=== PATIENT | female | born 1930 | race Caucasian/White ===

== ENCOUNTER 2017-02-09 23:57 | Inpatient (IN) | payer MEDICARE, BC ==
[~2017-02-09] VITALS: Ht 157.5 cm; Wt 82.1 kg
[~2017-02-09 23:57] MED LIST: ACET325T9 PO; AMIO200T PO; AMIO200T2 PO; APIX5TAB PO; FURO-68 PO; OMEP40CA2 PO
[2017-02-10 00:22] LABS: BASO # 0.1 x10^3/uL (0.0-0.2); BASO % 1 % (0-3); EOS % 0 % (0-3); HEMATOCRIT 40.6 % (36.0-47.0); HEMOGLOBIN 13.7 g/dL (12.0-15.5); LYMPH # 1.4 x10^3/uL (1.0-4.8); LYMPH % 10 % (24-48); MEAN CORPUSCULAR HEMOGLOBIN 32 pg (25-35); MEAN CORPUSCULAR HGB CONC 34 g/dL (31-37); MEAN CORPUSCULAR VOLUME 94 fL (79-100); MONO % 10 % (0-9); NEUT % 80 % (31-73); PLATELET COUNT 253 x10^3/uL (140-400); RED CELL DISTRIBUTION WIDTH 13.4 % (11.5-14.5); WHITE BLOOD COUNT 14.5 x10^3/uL (4.0-11.0)
[2017-02-10] MEDS ORDERED: ONDANSETRON PF 4 MG/2 ML VIAL. IV ONE (00:30)
[2017-02-10] MEDS ORDERED: IV NORMAL SALINE 1000ML BAG 1,000 ML IV SCH (00:30)
[2017-02-10 00:31] LABS: CALCIUM 8.6 mg/dL (8.5-10.1); CREATININE 0.9 mg/dL (0.6-1.0); GFR 59.1; POTASSIUM 3.5 mmol/L (3.5-5.1)
[2017-02-10 00:32] LABS: INR 1.2 (0.8-1.1); PROTHROMBIN TIME PATIENT 14.8 SEC (11.7-14.0)
[2017-02-10] MEDS: fentaNYL PF VIAL 100 MCG/2 ML VIAL IV PRN ×4 (00:33→23:59)
[2017-02-10 00:37] LABS: ALBUMIN 3.1 g/dL (3.4-5.0); ALBUMIN/GLOBULIN RATIO 0.8 (1.0-1.7); TOTAL BILIRUBIN 1.3 mg/dL (0.2-1.0)
[2017-02-10 00:47] LABS: CKMB MASS < 0.5 ng/mL (0.0-3.6); CREATINE KINASE 37 U/L (26-192)
--- NOTE | 2017-02-10 00:50 | PHYS DOC ---
Past Medical History Past Medical History: Arrhythmia, GERD, Other Additional Past Medical Histor: macular degeneration; atrial fibrillation-on anticoagulation Past Surgical History: Pacemaker Additional Information: Non smoker Alcohol Use: None Drug Use: None Adult General Chief Complaint Chief Complaint: ABDOMINAL PAIN HPI HPI Patient is a 86 year old female who presents with abdominal pain. Started on Monday with vomiting. The pain awakened her tonight at 2300 PM. The pain is on her right side. No diarrhea. No known fever. She is on Eliquis (for "heart"). Review of Systems Review of Systems Constitutional: Denies fever POS chills Eyes: Denies change in visual acuity, redness, or eye pain HENT: Denies nasal congestion or sore throat Respiratory: Denies cough or shortness of breath Cardiovascular: No chest pain GI: POS abdominal pain, nausea and vomiting, DENIES bloody stools or diarrhea : Denies dysuria or hematuria Musculoskeletal: POS back pain but no joint pain Integument: Denies rash or skin lesions Neurologic: Denies headache, focal weakness or sensory changes All other systems were reviewed and found to be within normal limits, except as documented in this note. Current Medications Current Medications Current Medications Medications (Trade) Dose Ordered Sig/Adam Start Time Stop Time Status Last Admin Dose Admin Fentanyl Citrate (Fentanyl 2ml Vial) 50 mcg PRN Q1HR PRN 02/10/17 02:30 02/11/17 02:29 Info (Do NOT chart on this entry -- for MONITORING) 1 each PRN DAILY PRN 02/10/17 01:15 02/12/17 01:14 Iohexol (Omnipaque 300 Mg/ml) 60 ml 1X ONCE 02/10/17 01:30 02/10/17 01:31 DC 02/10/17 01:29 60 ML Morphine Sulfate 2 mg PRN Q2HR PRN 02/10/17 02:30 02/11/17 02:29 Ondansetron HCl (Zofran) 4 mg PRN Q8HRS PRN 02/10/17 02:30 02/11/17 02:29 Sodium Chloride 1,000 ml @ 1,000 mls/hr Q1H 02/10/17 00:30 02/10/17 01:29 DC 02/10/17 00:30 1,000 MLS/HR Allergies Allergies Allergies Coded Allergies Type Severity Reaction Last Updated Verified Sulfa (Sulfonamide Antibiotics) Allergy Intermediate 09/26/14 No Physical Exam Physical Exam Constitutional: Well developed, well nourished, in pain HENT: Normocephalic, atraumatic, bilateral external ears normal, oropharynx moist, no oral exudates, nose normal. Eyes: PERRLA, EOMI, conjunctiva normal, no discharge. Neck: Normal range of motion, no tenderness, supple, no stridor. Cardiovascular:Heart rate regular rhythm; tachycardic , no murmur Lungs & Thorax: Bilateral breath sounds clear to auscultation; no rales or wheezing Abdomen: Bowel sounds normal, soft, POSITIVE tenderness to right side; more upper than lower; positive guarding, no masses, no pulsatile masses. Skin: Warm, dry, no erythema, no rash. Back: No tenderness, no CVA tenderness. Extremities: No tenderness, no cyanosis, no clubbing, ROM intact, no edema. Neurologic: Alert and oriented X 3, normal motor function, normal sensory function, no focal deficits noted. Psychologic: Affect normal, judgement normal, mood normal. Current Patient Data Vital Signs Vital Signs Date Time Temp Pulse Resp B/P (MAP) Pulse Ox O2 Delivery O2 Flow Rate FiO2 02/10/17 02:10 18 94 Nasal Cannula 3.0 02/10/17 01:01 86 106/56 (73) 02/10/17 00:10 98.2 98.2 Lab Values Laboratory Tests Test 02/10/17 00:15 White Blood Count 14.5 x10^3/uL (4.0-11.0) H Red Blood Count 4.30 x10^6/uL (3.50-5.40) Hemoglobin 13.7 g/dL (12.0-15.5) Hematocrit 40.6 % (36.0-47.0) Mean Corpuscular Volume 94 fL (79-100) Mean Corpuscular Hemoglobin 32 pg (25-35) Mean Corpuscular Hemoglobin Concent 34 g/dL (31-37) Red Cell Distribution Width 13.4 % (11.5-14.5) Platelet Count 253 x10^3/uL (140-400) Neutrophils (%) (Auto) 80 % (31-73) H Lymphocytes (%) (Auto) 10 % (24-48) L Monocytes (%) (Auto) 10 % (0-9) H Eosinophils (%) (Auto) 0 % (0-3) Basophils (%) (Auto) 1 % (0-3) Neutrophils # (Auto) 11.6 x10^3uL (1.8-7.7) H Lymphocytes # (Auto) 1.4 x10^3/uL (1.0-4.8) Monocytes # (Auto) 1.4 x10^3/uL (0.0-1.1) H Eosinophils # (Auto) 0.0 x10^3/uL (0.0-0.7) Basophils # (Auto) 0.1 x10^3/uL (0.0-0.2) Prothrombin Time 14.8 SEC (11.7-14.0) H Prothrombin Time INR 1.2 (0.8-1.1) H PTT 30 SEC (24-38) Sodium Level 135 mmol/L (136-145) L Potassium Level 3.5 mmol/L (3.5-5.1) Chloride Level 100 mmol/L (98-107) Carbon Dioxide Level 28 mmol/L (21-32) Anion Gap 7 (6-14) Blood Urea Nitrogen 15 mg/dL (7-20) Creatinine 0.9 mg/dL (0.6-1.0) Estimated GFR (Cockcroft-Gault) 59.1 BUN/Creatinine Ratio 17 (6-20) Glucose Level 149 mg/dL (70-99) H Calcium Level 8.6 mg/dL (8.5-10.1) Total Bilirubin 1.3 mg/dL (0.2-1.0) H Aspartate Amino Transferase (AST) 16 U/L (15-37) Alanine Aminotransferase (ALT) 16 U/L (14-59) Alkaline Phosphatase 89 U/L (46-116) Creatine Kinase 37 U/L (26-192) Creatine Kinase MB (Mass) < 0.5 ng/mL (0.0-3.6) Creatine Kinase MB Relative Index % (0-4) Troponin I Quantitative < 0.017 ng/mL (0.000-0.055) Total Protein 7.0 g/dL (6.4-8.2) Albumin 3.1 g/dL (3.4-5.0) L Albumin/Globulin Ratio 0.8 (1.0-1.7) L Lipase 79 U/L (73-393) Laboratory Tests 02/10/17 00:15 Laboratory Tests 02/10/17 00:15 EKG EKG EKG interpreted by myself at 0022 am with Sinus tachycardia, Rate 101, leftward axis; nonspecific ST changes. Radiology/Procedures Radiology/Procedures CXR interpreted by myself with PM wires in place; LLL atelectasis vs scarring. Improved from CXR 2014 [facility] [address] [place] [address] IMAGING REPORT Signed PATIENT: NANCY GRIFFITH ACCOUNT: [id number] : 1930 LOCATION: ER AGE: 86 SEX: F EXAM STATUS: REG ER ORD. PHYSICIAN: ALLAN LARIOS MD REASON: WBC, vomiting Rt sided pain PROCEDURE: CT ABD PELV W/ IV CONTRST ONLY CT abdomen and pelvis with contrast: Reason for examination: Right-sided abdominal pain and vomiting. Helical images were obtained through the abdomen and pelvis with intravenous administration of 60 cc Omnipaque 300. Reconstruction was performed in sagittal and coronal planes. Exposure: One or more of the following individualized dose reduction techniques were utilized for this examination: 1. Automated exposure control 2. Adjustment of the mA and/or kV according to patient size 3. Use of iterative reconstruction technique. The lung bases show some atelectasis at the lung bases. No pleural effusions are seen. The heart size is normal. No abnormality seen at the liver, spleen, adrenal glands or pancreas. The gallbladder appears distended and there is some pericholecystic fluid and inflammatory change present. The abdominal aorta and inferior vena cava show no abnormalities. There is a small hiatal hernia. No abnormality seen at the appendix. The intestinal tract shows no abnormally dilated loops of bowel or thickened bowel vaughan. There is no evidence of diverticulosis or diverticulitis. The kidneys show no renal masses, renal calculi, hydronephrosis or evidence of obstructive uropathy. No abnormality seen at the bladder uterus or in the adnexa. There is free fluid in the pelvis. IMPRESSION: Distended gallbladder with pericholecystic fluid and inflammatory changes around the gallbladder without cholelithiasis identified. Cannot exclude acalculous cholecystitis. Small amount of free fluid in the pelvis. Linear atelectasis at the lung bases. Small hiatal hernia. Electronically signed by: Skylar Monte MD (02/10/2017 2:08 AM) [facility] DICTATED and SIGNED BY: SKYLAR MONTE MD DATE: 02/10/17 0148 CC: ALLAN LARIOS MD; LULI GAY MD ~ Course & Med Decision Making Course & Med Decision Making Evaluated patient. IV NS, IV ZOfran and IV fentanyl. Concerned about acute abdomen; kept NPO. At 0050 AM: Lab back; CT ordered (Cr normal). At 0120 AM: patient in CT. At 0215 AM: CT results back: POS cholelithiasis and cholecystitis. Zosyn IV started. Updated patient and family. Admit to Dr Kathleen and consult Surgery; kept NPO. Lipase normal. She is anticoagulated. Pain had improved upon discharge to floor. My differential for abdominal pain includes but is not limited to appendicitis; cholelithiasis or cholecystitis; renal stones; ureterolithiasis; pancreatitis; urinary tract infection; bowel obstruction; irritable bowel. I have spoken with the patient and/or caregivers. I have explained the patient' s condition, diagnosis and treatment plan based on the information available to me at this time. I have answered the patient's and/or caregiver's questions and addressed any concerns. The patient and/or caregivers have as good an understanding of the patient's diagnosis, condition and treatment plan as can be expected at this point. The patient has been stabilized within the capability of the emergency department. The patient will be transported for further care and management or will be moved to an observation or inpatient service. I have communicated with the staff or medical practitioner taking over this patient's care. I have assessed this patient clinically and believe that their condition requires admission to the hospital. After consulting the admitting physician about this case, they have asked that I admit this patient to their service as an inpatient based on the clinical presentation and my impression. I spent approximately 30 minutes working and engaged directly in the patient care providing critical care evaluation this includes but not limited to time spent engaged in work directly related to the individual patients care. I spent time at the bedside, reviewing test results, discussing the case with staff, documenting the medical record and time spent with EMS discussing specific treatment issues when the patient presented and during his evaluation. This includes any discussion and updates with family members and/or patient. Dragon Disclaimer Dragon Disclaimer This electronic medical record was generated, in whole or in part, using a voice recognition dictation system. Departure Departure Impression: Primary Impression: Acute cholecystitis due to biliary calculus Additional Impressions: Abdominal pain Nausea & vomiting Current use of anticoagulant therapy Disposition: ADMITTED INPATIENT Admitting Physician: April Kathleen Condition: STABLE Referrals: KATARZYNA OCHOA GRINDER OPERATOR (PCP) Problem Qualifiers Additional Impressions: Abdominal pain Abdominal location: right upper quadrant Qualified Codes: R10.11 - Right upper quadrant pain Nausea & vomiting Vomiting type: unspecified Vomiting Intractability: non-intractable Qualified Codes: R11.2 - Nausea with vomiting, unspecified ALLAN LARIOS MD Feb 10, 2017 00:50
[2017-02-10] MEDS ORDERED: CONTRAST GIVEN MC PRN (01:15)
[2017-02-10] MEDS ORDERED: IOHEXOL 300 MG/ML 100ML VIAL. IV ONE (01:30)
--- NOTE | 2017-02-10 02:12 | RAD ---
CT abdomen and pelvis with contrast: Reason for examination: Right-sided abdominal pain and vomiting. Helical images were obtained through the abdomen and pelvis with intravenous administration of 60 cc Omnipaque 300. Reconstruction was performed in sagittal and coronal planes. Exposure: One or more of the following individualized dose reduction techniques were utilized for this examination: 1. Automated exposure control 2. Adjustment of the mA and/or kV according to patient size 3. Use of iterative reconstruction technique. The lung bases show some atelectasis at the lung bases. No pleural effusions are seen. The heart size is normal. No abnormality seen at the liver, spleen, adrenal glands or pancreas. The gallbladder appears distended and there is some pericholecystic fluid and inflammatory change present. The abdominal aorta and inferior vena cava show no abnormalities. There is a small hiatal hernia. No abnormality seen at the appendix. The intestinal tract shows no abnormally dilated loops of bowel or thickened bowel vaughan. There is no evidence of diverticulosis or diverticulitis. The kidneys show no renal masses, renal calculi, hydronephrosis or evidence of obstructive uropathy. No abnormality seen at the bladder uterus or in the adnexa. There is free fluid in the pelvis. IMPRESSION: Distended gallbladder with pericholecystic fluid and inflammatory changes around the gallbladder without cholelithiasis identified. Cannot exclude acalculous cholecystitis. Small amount of free fluid in the pelvis. Linear atelectasis at the lung bases. Small hiatal hernia. Electronically signed by: Skylar Delaney MD (02/10/2017 2:08 AM) [facility]
[2017-02-10] MEDS ORDERED: ONDANSETRON PF 4 MG/2 ML VIAL. IV PRN (02:30)
[2017-02-10] MEDS ORDERED: MORPHINE SULFATE 2 MG/ML DISP.SYRIN. IV PRN (02:30)
[2017-02-10] MEDS ORDERED: POTASSIUM CL 20MEQ D5-0.45NACL 1,000 ML IV ONE (03:00)
[2017-02-10] MEDS ORDERED: PIPERACILLIN/TAZO IV Push 3.375 GM VIAL. IVP ONE (03:00)
[2017-02-10 03:20] VITALS: BP 93/56
[2017-02-10] MEDS ORDERED: METO25TA4 (04:40)
[2017-02-10] MEDS ORDERED: PIPERACILLIN/TAZOBACTAM 3.375 GM in IV DEXTROSE 5% 50 ML IV SCH (06:00)
[2017-02-10] MEDS: PIPERACILLIN/TAZO IV Push 2.25 GM VIAL. IVP SCH ×4 (06:08→23:59)
[2017-02-10 07:00] VITALS: BP 111/49
--- NOTE | 2017-02-10 07:59 | RAD ---
EXAM: Chest one view. HISTORY: Upper abdominal pain, hypoxia. COMPARISON: 09/23/2014. FINDINGS: A frontal view of the chest is obtained. A left-sided pacemaker has its leads in the right atrium and right ventricle. Linear opacities in the left greater than right bases indicate atelectasis or scarring. There is no pneumothorax or pleural effusion. The heart is not enlarged. There are atherosclerotic calcifications of the aorta. IMPRESSION: 1. Basilar atelectasis or scarring.
--- NOTE | 2017-02-10 09:11 | EKG ---
[facility] [address] [place] [address] Test Date: 2017-02-10 Test Time: 00:22:14 Pat Name: NANCY GRIFFITH Department: Room: 402 1 Gender: F [employer]: : 1930 Requested By: ALLAN LARIOS Order Number: [id number] Reading MD: Jos Turner Measurements Intervals [place] Rate: 101 P: 26 MN: 156 QRS: -21 QRSD: 74 T: 54 QT: 318 QTc: 418 Interpretive Statements SINUS TACHYCARDIA LEFTWARD AXIS QRS(T) CONTOUR ABNORMALITY CONSIDER ANTEROLATERAL MYOCARDIAL DAMAGE POSSIBLY ABNORMAL ECG Electronically Signed On 02-20-2017 14:09:31 [employer] LAMINATOR by Jos Turner
[2017-02-10 11:00] VITALS: BP 103/48
--- NOTE | 2017-02-10 11:33 | HP ---
ADMIT DATE: 02/10/2017 CHIEF COMPLAINT: Abdominal pain and nausea. HISTORY OF PRESENT ILLNESS: The patient is a pleasant 86-year-old female who presented to the ER with abdominal pain and nausea. This started 3 days ago, rated at 10/10. She tried increasing her home meds, but that did not work. Imaging studies in the ER is showing cholecystitis. I have discussed the case with ER physician. We are admitting the patient and consulting General Surgery and GI. PAST MEDICAL HISTORY: GERD, arrhythmias, macular degeneration, AFib, chronic anticoagulation, pacemaker. ALLERGIES: SULFA. FAMILY HISTORY: Coronary artery disease. SOCIAL HISTORY: She does not drink, smoke or take drugs. MEDICATIONS: Reviewed. REVIEW OF SYSTEMS: GENERAL: No history of weight change, weakness or fevers. SKIN: No bruising, hair changes or rashes. EYES: No blurred, double or loss of vision. NOSE AND THROAT: No history of nosebleeds, hoarseness or sore throat. HEART: No history of palpitations, chest pain or shortness of breath on exertion. LUNGS: Denies cough, hemoptysis, wheezing or shortness of breath. GASTROINTESTINAL: Complains of abdominal pain. GENITOURINARY: No history of frequency, urgency, hesitancy or nocturia. NEUROLOGIC: Denies history of numbness, tingling, tremor or weakness. PSYCHIATRIC: No history of panic, anxiety or depression. ENDOCRINE: No history of heat or cold intolerance, polyuria or polydipsia. EXTREMITIES: Denies muscle weakness, joint pain, pain on walking or stiffness. PHYSICAL EXAMINATION: VITAL SIGNS: Temperature afebrile, pulse 80, respirations 16, blood pressure 111/49, oxygen saturation is 90% on 2 liters. GENERAL: She is alert, cooperative, complaining of pain. HEART: Normal S1, S2. LUNGS: Clear. ABDOMEN: Soft. Decreased bowel sounds. Very tender, somewhat rigid, but tap negative. ENDOCRINE: No thyromegaly. LYMPHATICS: No cervical nodes. HEMATOPOIETIC: No bruising. LABORATORY DATA: White count 14, hemoglobin 13.7, platelets 253. Electrolytes normal other than sodium of 135 and glucose of 149. Bilirubin 1.3. INR 1.2. CT is showing cholecystitis. ASSESSMENT AND PLAN: Cholecystitis. The patient will be admitted. We will start IV antibiotics. Consult GI, consult General Surgery, consult Infectious Disease. P.r.n. narcotics, IV fluids, n.p.o. CURT WREN DO DR: NAHED/ata JOB#: [id number] / [id number]
--- NOTE | 2017-02-10 14:35 | PDOC2 ---
CONSULT Date of Consult Date of Consult DATE: 02/10/17 TIME: 14:33 History of Present Illness Reason for Visit: The patient is an 86 year old female who has noticed vomiting and RUQ pain for the last few days. The pain persisted prompting her to report to the ER. The pain radiates around the side to the back. Past Medical History Cardiovascular: No pertinent hx Pulmonary: No pertinent hx GI: GERD Heme/Onc: No pertinent hx Hepatobiliary: No pertinent hx Psych: No pertinent hx Rheumatologic: No pertinent hx Infectious disease: No pertinent hx Renal/: No pertinent hx Endocrine: No pertinent hx Past Surgical History Past Surgical History: Pacemaker Family History Family History: Heart Disease Social History ALCOHOL: none Drugs: None Lives: with Family Domestic Violence: Neg Current Problem List Problem List Problems Medical Problems: (1) Abdominal pain Status: Acute (2) Acute cholecystitis due to biliary calculus Status: Acute (3) Current use of anticoagulant therapy Status: Acute (4) Nausea & vomiting Status: Acute Current Medications Current Medications Current Medications Fentanyl Citrate (Fentanyl 2ml Vial) 50 mcg PRN Q15MIN PRN IV PAIN GREATER THAN 3/10 Last administered on 02/10/17 09:47; Start 02/10/17 at 00:15; Stop 02/10/17 at 12:53; Status DC Sodium Chloride 1,000 ml @ 1,000 mls/hr Q1H IV Last administered on 00:30; Start 02/10/17 at 00:30; Stop 02/10/17 at 01:29; Status DC Ondansetron HCl (Zofran) 4 mg 1X ONCE IV Last administered on 02/10/17 00:32 ; Start 02/10/17 at 00:30; Stop 02/10/17 at 00:31; Status DC Iohexol (Omnipaque 300 Mg/ml) 60 ml 1X ONCE IV Last administered on 01:29; Start 02/10/17 at 01:30; Stop 02/10/17 at 01:31; Status DC Info (Do NOT chart on this entry -- for MONITORING) 1 each PRN DAILY PRN MC SEE COMMENTS; Start 02/10/17 at 01:15; Stop 02/12/17 at 01:14 Piperacillin Sod/ Tazobactam Sod 3.375 gm/Dextrose 50 ml @ 100 mls/hr Q6HRS IV ; Start 02/10/17 at 06:00; Status UNV Ondansetron HCl (Zofran) 4 mg PRN Q8HRS PRN IV NAUSEA/VOMITING; Start at 02:30; Stop 02/11/17 at 02:29 Morphine Sulfate 2 mg PRN Q2HR PRN IV SEVERE PAIN; Start 02/10/17 at 02:30; Stop 02/11/17 at 02:29 Fentanyl Citrate (Fentanyl 2ml Vial) 50 mcg PRN Q1HR PRN IV SEVERE PAIN; Start 02/10/17 at 02:30; Stop 02/11/17 at 02:29 Piperacillin Sod/ Tazobactam Sod (Zosyn) 3.375 gm 1X ONCE IVP Last administered on 02/10/17 02:41; Start 02/10/17 at 03:00; Stop 02/10/17 at 03 :01; Status DC Potassium Chloride/Dextrose/ Sod Cl 1,000 ml @ 125 mls/hr 1X ONCE IV Last administered on 02/10/17 03:02; Start 02/10/17 at 03:00; Stop 02/10/17 at 10 :59; Status DC Piperacillin Sod/ Tazobactam Sod (Zosyn) 2.25 gm Q6HRS IVP Last administered on 02/10/17 12:41; Start 02/10/17 at 06:00 Lactobacillus Rhamnosus (Culturelle) 1 cap BID PO ; Start 02/10/17 at 21:00 Active Scripts Active Amiodarone Hcl 200 Mg Tablet 1 Tab PO DAILY Tylenol (Acetaminophen) 325 Mg Tablet 650 Mg PO PRN Q6HRS PRN Eliquis (Apixaban) 5 Mg Tablet 5 Mg PO BID Reported Metoprolol Tartrate 25 Mg Tablet Lasix (Furosemide) 40 Mg Tablet 1 Tab PO DAILY Prilosec (Omeprazole) 40 Mg Capsule. 1 Cap PO DAILY Allergies Allergies: Coded Allergies: Sulfa (Sulfonamide Antibiotics) (Unverified Allergy, Intermediate, 09/26/14 ) ROS General: No: Chills, Night Sweats, Fatigue, Malaise, Appetite, Other PSYCHOLOGICAL ROS: No: Anxiety, Behavioral Disorder, Concentration difficultie , Decreased libido, Depression, Disorientation, Hallucinations, Hostility, Irritablity, Memory difficulties, Mood Swings, Obsessive thoughts, Physical abuse, Sexual abuse, Sleep disturbances, Suicidal ideation, Other Eyes: No Blurry vision, No Decreased vision, No Double vision, No Dry eyes, No Excessive tearing, No Eye Pain, No Itchy Eyes, No Loss of vision, No Photophobia , No Scotomata, No Uses contacts, No Uses glasses, No Other HEENT: No: Heacaches, Visual Changes, Hearing change, Nasal congestion, Nasal discharge, Oral lesions, Sinus pain, Sore Throat, Epistaxis, Sneezing, Snoring, Tinnitus, Vertigo, Vocal changes, Other Hematological and Lymphatic: No: Bleeding Problems, Blood Clots, Blood Transfusions, Brusing, Night Sweats, Pallor, Swollen Lymph Nodes, Other ENDOCRINE: No: Breast Changes, Galactorrhea, Hair Pattern Changes, Hot Flashes , Malaise/lethargy, Mood Swings, Palpitations, Polydipsia/polyuria, Skin Changes , Temperature Intolerance, Unexpected Weight Changes, Other Respiratory: No: Cough, Hemoptysis, Orthopnea, Pleuritic Pain, Shortness of breath, SOB with excertion, Sputum Changes, Stridor, Tachypnea, Wheezing, Other Cardiovascular: No Chest Pain, No Palpitations, No Orthopnea, No Paroxysmal Noc. Dyspnea, No Edema, No Lt Headedness, No Other Gastrointestinal: Yes Vomiting, Yes Abdominal Pain Genitourinary: No Dysuria, No Frequency, No Incontinence, No Hematuria, No Retention, No Discharge, No Urgency, No Pain, No Flank Pain, No Other, No , No , No , No , No , No , No Musculoskeletal: No Gait Disturbance, No Joint Pain, No Joint Stiffness, No Joint Swelling, No Muscle Pain, No Muscular Weakness, No Pain In:, No Swelling In:, No Other Neurological: No Behavorial Changes, No Bowel/Bladder ControlChng, No Confusion , No Dizziness, No Gait Disturbance, No Headaches, No Impaired Coord/balance, No Memory Loss, No Numbness/Tingling, No Seizures, No Speech Problems, No Tremors, No Visual Changes, No Weakness, No Other Physical Exam General: Alert, Oriented X3, Cooperative HEENT: Atraumatic Lungs: Clear to auscultation Heart: Regular rate Abdomen: Soft (tender RUQ with palpation) Extremities: No clubbing, No cyanosis Skin: No rashes Neuro: Normal speech Psych/Mental Status: Mental status NL MUSCULOSKELETAL: No deformity, No swelling Vitals VITALS Vital Signs Date Time Temp Pulse Resp B/P (MAP) Pulse Ox O2 Delivery O2 Flow Rate FiO2 02/10/17 11:00 100.9 101 18 103/48 (66) 89 Room Air 100.9 02/10/17 03:30 2.0 Labs Labs Laboratory Tests Test 02/10/17 00:15 White Blood Count 14.5 x10^3/uL (4.0-11.0) Red Blood Count 4.30 x10^6/uL (3.50-5.40) Hemoglobin 13.7 g/dL (12.0-15.5) Hematocrit 40.6 % (36.0-47.0) Mean Corpuscular Volume 94 fL (79-100) Mean Corpuscular Hemoglobin 32 pg (25-35) Mean Corpuscular Hemoglobin Concent 34 g/dL (31-37) Red Cell Distribution Width 13.4 % (11.5-14.5) Platelet Count 253 x10^3/uL (140-400) Neutrophils (%) (Auto) 80 % (31-73) Lymphocytes (%) (Auto) 10 % (24-48) Monocytes (%) (Auto) 10 % (0-9) Eosinophils (%) (Auto) 0 % (0-3) Basophils (%) (Auto) 1 % (0-3) Neutrophils # (Auto) 11.6 x10^3uL (1.8-7.7) Lymphocytes # (Auto) 1.4 x10^3/uL (1.0-4.8) Monocytes # (Auto) 1.4 x10^3/uL (0.0-1.1) Eosinophils # (Auto) 0.0 x10^3/uL (0.0-0.7) Basophils # (Auto) 0.1 x10^3/uL (0.0-0.2) Prothrombin Time 14.8 SEC (11.7-14.0) Prothromb Time International Ratio 1.2 (0.8-1.1) Activated Partial Thromboplast Time 30 SEC (24-38) Sodium Level 135 mmol/L (136-145) Potassium Level 3.5 mmol/L (3.5-5.1) Chloride Level 100 mmol/L (98-107) Carbon Dioxide Level 28 mmol/L (21-32) Anion Gap 7 (6-14) Blood Urea Nitrogen 15 mg/dL (7-20) Creatinine 0.9 mg/dL (0.6-1.0) Estimated GFR (Cockcroft-Gault) 59.1 BUN/Creatinine Ratio 17 (6-20) Glucose Level 149 mg/dL (70-99) Calcium Level 8.6 mg/dL (8.5-10.1) Total Bilirubin 1.3 mg/dL (0.2-1.0) Aspartate Amino Transf (AST/SGOT) 16 U/L (15-37) Alanine Aminotransferase (ALT/SGPT) 16 U/L (14-59) Alkaline Phosphatase 89 U/L (46-116) Creatine Kinase 37 U/L (26-192) Creatine Kinase MB (Mass) < 0.5 ng/mL (0.0-3.6) Creatine Kinase MB Relative Index % (0-4) Troponin I Quantitative < 0.017 ng/mL (0.000-0.055) Total Protein 7.0 g/dL (6.4-8.2) Albumin 3.1 g/dL (3.4-5.0) Albumin/Globulin Ratio 0.8 (1.0-1.7) Lipase 79 U/L (73-393) Laboratory Tests Test 02/10/17 00:15 White Blood Count 14.5 x10^3/uL (4.0-11.0) Red Blood Count 4.30 x10^6/uL (3.50-5.40) Hemoglobin 13.7 g/dL (12.0-15.5) Hematocrit 40.6 % (36.0-47.0) Mean Corpuscular Volume 94 fL (79-100) Mean Corpuscular Hemoglobin 32 pg (25-35) Mean Corpuscular Hemoglobin Concent 34 g/dL (31-37) Red Cell Distribution Width 13.4 % (11.5-14.5) Platelet Count 253 x10^3/uL (140-400) Neutrophils (%) (Auto) 80 % (31-73) Lymphocytes (%) (Auto) 10 % (24-48) Monocytes (%) (Auto) 10 % (0-9) Eosinophils (%) (Auto) 0 % (0-3) Basophils (%) (Auto) 1 % (0-3) Neutrophils # (Auto) 11.6 x10^3uL (1.8-7.7) Lymphocytes # (Auto) 1.4 x10^3/uL (1.0-4.8) Monocytes # (Auto) 1.4 x10^3/uL (0.0-1.1) Eosinophils # (Auto) 0.0 x10^3/uL (0.0-0.7) Basophils # (Auto) 0.1 x10^3/uL (0.0-0.2) Prothrombin Time 14.8 SEC (11.7-14.0) Prothromb Time International Ratio 1.2 (0.8-1.1) Activated Partial Thromboplast Time 30 SEC (24-38) Sodium Level 135 mmol/L (136-145) Potassium Level 3.5 mmol/L (3.5-5.1) Chloride Level 100 mmol/L (98-107) Carbon Dioxide Level 28 mmol/L (21-32) Anion Gap 7 (6-14) Blood Urea Nitrogen 15 mg/dL (7-20) Creatinine 0.9 mg/dL (0.6-1.0) Estimated GFR (Cockcroft-Gault) 59.1 BUN/Creatinine Ratio 17 (6-20) Glucose Level 149 mg/dL (70-99) Calcium Level 8.6 mg/dL (8.5-10.1) Total Bilirubin 1.3 mg/dL (0.2-1.0) Aspartate Amino Transf (AST/SGOT) 16 U/L (15-37) Alanine Aminotransferase (ALT/SGPT) 16 U/L (14-59) Alkaline Phosphatase 89 U/L (46-116) Creatine Kinase 37 U/L (26-192) Creatine Kinase MB (Mass) < 0.5 ng/mL (0.0-3.6) Creatine Kinase MB Relative Index % (0-4) Troponin I Quantitative < 0.017 ng/mL (0.000-0.055) Total Protein 7.0 g/dL (6.4-8.2) Albumin 3.1 g/dL (3.4-5.0) Albumin/Globulin Ratio 0.8 (1.0-1.7) Lipase 79 U/L (73-393) Images Images CT abdomen: IMPRESSION: Distended gallbladder with pericholecystic fluid and inflammatory changes around the gallbladder without cholelithiasis identified. Cannot exclude acalculous cholecystitis. Small amount of free fluid in the pelvis. Linear atelectasis at the lung bases. Small hiatal hernia. Assessment/Plan Assessment/Plan Pt on Eliquis prior to admission; recommend holding 48 hours prior to surgery; continue IV abx, likely lap russell Monday (discussed with Dr Berry who will be covering) FRANK CARCAMO MD Feb 10, 2017 14:35
[2017-02-10 15:00] VITALS: BP 114/50
[2017-02-10 17:12] LABS: BILIRUBIN,URINE SMALL (NEG); GLUCOSE,URINE NEGATIVE (NEG); NITRITE,URINE NEGATIVE (NEG); PROTEIN,URINE 30 mg/dL (NEG-TRACE)
[2017-02-10 17:21] LABS: BACTERIA,URINE FEW /HPF (0-FEW); RBC,URINE 0 /HPF (0-2); SQUAMOUS EPITHELIAL CELL,UR OCC /LPF
[2017-02-10 19:00] VITALS: BP 103/58
[2017-02-10] MEDS: LACTOBACILLUS RHAMNOSUS GG 1 CAPSULE. PO SCH (20:57)
[2017-02-10 23:00] VITALS: BP 116/77
[2017-02-11] VITALS (10 sets, daily range): BP systolic 89–112; BP diastolic 41–65
[2017-02-11] MEDS: PIPERACILLIN/TAZO IV Push 2.25 GM VIAL. IVP SCH ×3 (06:11→17:52)
[2017-02-11] MEDS: fentaNYL PF VIAL 100 MCG/2 ML VIAL IV PRN (06:24)
[2017-02-11] MEDS: LACTOBACILLUS RHAMNOSUS GG 1 CAPSULE. PO SCH ×2 (08:41→21:31)
--- NOTE | 2017-02-11 10:17 | PDOC2 ---
GI CONSULT Reason For Consult: Cholecystitis HPI: HPI: 86 y/o female with onset of upper abdominal pain last Monday; presented to ER on Monday. Imaging c/w acute cholecystitis. Cholecystectomy planned when off Eliquis for 2 days. Continues to be quite uncomfortable. No prior known GB issues. No definite stones on CT. H/o "GERD" on daily PPI. No PUD, liver, or pancreatic history. Non-smoker. Occasional wine. Occasional ASA use. No diarrhea, constipation, overt bleeding or melena. Wt/appetite OK. Some N and V with above. No prior endoscopy. PMH: PMH: Afib, macular degeneration. S/p PPMI. Social History: Smoke: No ALCOHOL: occassional Drugs: None ROS: GEN: Denies fevers, chills, sweats HEENT: Denies sore throat CV: Denies chest pain RESP: Denies shortness of air, cough GI: Per HPI : Denies hematuria, dysuria ENDO: Denies weight changes NEURO: Denies confusion, dizziness MSK: Denies weakness, joint pain/swelling SKIN: Denies jaundice, pruritus Vitals: Vitals: Vital Signs Date Time Temp Pulse Resp B/P (MAP) Pulse Ox O2 Delivery O2 Flow Rate FiO2 02/11/17 07:00 98.6 82 18 92/41 (58) 94 Room Air 98.6 02/11/17 06:55 2.0 Labs: Labs: Laboratory Tests Test 02/10/17 17:00 Urine Color Jenelle Urine Clarity Cloudy Urine pH 6.0 Urine Specific [place] 1.025 Urine Protein 30 mg/dL (NEG-TRACE) Urine Glucose (UA) Negative mg/dL (NEG) Urine Ketones (Stick) Negative mg/dL (NEG) Urine Blood Negative (NEG) Urine Nitrite Negative (NEG) Urine Bilirubin Small (NEG) Urine Urobilinogen Dipstick 2.0 mg/dL (0.2 mg/dL) Urine Leukocyte Esterase Moderate (NEG) Urine RBC 0 /HPF (0-2) Urine WBC 5-10 /HPF (0-4) Urine Squamous Epithelial Cells Occ /LPF Urine Amorphous Sediment Present /HPF Urine Bacteria Few /HPF (0-FEW) Urine Mucus Slight /LPF Allergies: Coded Allergies: Sulfa (Sulfonamide Antibiotics) (Unverified Allergy, Intermediate, 09/26/14 ) Medications: Current Medications Medications (Trade) Dose Ordered Sig/Adam Route PRN Reason Start Time Stop Time Status Last Admin Dose Admin Lactobacillus Rhamnosus (Culturelle) 1 cap BID PO 02/10/17 21:00 02/11/17 08:41 Fentanyl Citrate (Fentanyl 2ml Vial) 50 mcg PRN Q2HR PRN IV SEVERE PAIN 02/11/17 06:30 02/11/17 06:24 PE: GEN: NAD HEENT: Atraumatic, PERRLA LUNGS: CTAB HEART: IRR, no murmurs ABD: Few bowel sounds, S/ND, tender upper abdomen, mostly in RUQ: no masses EXTREMITY: No edema SKIN: No rashes, no jaundice NEURO/PSYCH: A & O 3 A/P: A/P: IMP:Acute cholecystitis; acalculous? GERD REC: Agree with plans for russell. Would maintain on PPI or other anti-secretory IV to forestall "acid rebound". --other pending. Thanks. SHIREEN CARO MD Feb 11, 2017 10:17
[2017-02-11] MEDS: PANTOPRAZOLE 40 MG TABLET.DR. PO SCH (11:30)
--- NOTE | 2017-02-11 11:42 | PDOC ---
SURGICAL PROGRESS NOTE Subjective Pt reports persistent pain RUQ, no n/v, hungry Vital Signs Vital Signs Date Time Temp Pulse Resp B/P (MAP) Pulse Ox O2 Delivery O2 Flow Rate FiO2 02/11/17 11:06 98.1 76 16 112/49 (70) 94 Nasal Cannula 2.0 98.1 I&O Intake and Output 02/11/17 07:00 Intake Total 490 ml Output Total 700 ml Balance -210 ml Intake Oral 490 ml Output Urine Total 700 ml Stool Total 0 ml # Voids 3 General: Alert, Oriented X3, Cooperative, mild distress Abdomen: Soft, Other (TTP RUQ) Labs Laboratory Tests Test 02/10/17 00:15 02/10/17 17:00 White Blood Count 14.5 x10^3/uL (4.0-11.0) Red Blood Count 4.30 x10^6/uL (3.50-5.40) Hemoglobin 13.7 g/dL (12.0-15.5) Hematocrit 40.6 % (36.0-47.0) Mean Corpuscular Volume 94 fL (79-100) Mean Corpuscular Hemoglobin 32 pg (25-35) Mean Corpuscular Hemoglobin Concent 34 g/dL (31-37) Red Cell Distribution Width 13.4 % (11.5-14.5) Platelet Count 253 x10^3/uL (140-400) Neutrophils (%) (Auto) 80 % (31-73) Lymphocytes (%) (Auto) 10 % (24-48) Monocytes (%) (Auto) 10 % (0-9) Eosinophils (%) (Auto) 0 % (0-3) Basophils (%) (Auto) 1 % (0-3) Neutrophils # (Auto) 11.6 x10^3uL (1.8-7.7) Lymphocytes # (Auto) 1.4 x10^3/uL (1.0-4.8) Monocytes # (Auto) 1.4 x10^3/uL (0.0-1.1) Eosinophils # (Auto) 0.0 x10^3/uL (0.0-0.7) Basophils # (Auto) 0.1 x10^3/uL (0.0-0.2) Prothrombin Time 14.8 SEC (11.7-14.0) Prothromb Time International Ratio 1.2 (0.8-1.1) Activated Partial Thromboplast Time 30 SEC (24-38) Sodium Level 135 mmol/L (136-145) Potassium Level 3.5 mmol/L (3.5-5.1) Chloride Level 100 mmol/L (98-107) Carbon Dioxide Level 28 mmol/L (21-32) Anion Gap 7 (6-14) Blood Urea Nitrogen 15 mg/dL (7-20) Creatinine 0.9 mg/dL (0.6-1.0) Estimated GFR (Cockcroft-Gault) 59.1 BUN/Creatinine Ratio 17 (6-20) Glucose Level 149 mg/dL (70-99) Calcium Level 8.6 mg/dL (8.5-10.1) Total Bilirubin 1.3 mg/dL (0.2-1.0) Aspartate Amino Transf (AST/SGOT) 16 U/L (15-37) Alanine Aminotransferase (ALT/SGPT) 16 U/L (14-59) Alkaline Phosphatase 89 U/L (46-116) Creatine Kinase 37 U/L (26-192) Creatine Kinase MB (Mass) < 0.5 ng/mL (0.0-3.6) Creatine Kinase MB Relative Index % (0-4) Troponin I Quantitative < 0.017 ng/mL (0.000-0.055) Total Protein 7.0 g/dL (6.4-8.2) Albumin 3.1 g/dL (3.4-5.0) Albumin/Globulin Ratio 0.8 (1.0-1.7) Lipase 79 U/L (73-393) Urine Color Jenelle Urine Clarity Cloudy Urine pH 6.0 Urine Specific [place] 1.025 Urine Protein 30 mg/dL (NEG-TRACE) Urine Glucose (UA) Negative mg/dL (NEG) Urine Ketones (Stick) Negative mg/dL (NEG) Urine Blood Negative (NEG) Urine Nitrite Negative (NEG) Urine Bilirubin Small (NEG) Urine Urobilinogen Dipstick 2.0 mg/dL (0.2 mg/dL) Urine Leukocyte Esterase Moderate (NEG) Urine RBC 0 /HPF (0-2) Urine WBC 5-10 /HPF (0-4) Urine Squamous Epithelial Cells Occ /LPF Urine Amorphous Sediment Present /HPF Urine Bacteria Few /HPF (0-FEW) Urine Mucus Slight /LPF Laboratory Tests Test 02/10/17 17:00 Urine Color Jenelle Urine Clarity Cloudy Urine pH 6.0 Urine Specific [place] 1.025 Urine Protein 30 mg/dL (NEG-TRACE) Urine Glucose (UA) Negative mg/dL (NEG) Urine Ketones (Stick) Negative mg/dL (NEG) Urine Blood Negative (NEG) Urine Nitrite Negative (NEG) Urine Bilirubin Small (NEG) Urine Urobilinogen Dipstick 2.0 mg/dL (0.2 mg/dL) Urine Leukocyte Esterase Moderate (NEG) Urine RBC 0 /HPF (0-2) Urine WBC 5-10 /HPF (0-4) Urine Squamous Epithelial Cells Occ /LPF Urine Amorphous Sediment Present /HPF Urine Bacteria Few /HPF (0-FEW) Urine Mucus Slight /LPF Problem List Problems Medical Problems: (1) Abdominal pain Status: Acute (2) Acute cholecystitis due to biliary calculus Status: Acute (3) Current use of anticoagulant therapy Status: Acute (4) Nausea & vomiting Status: Acute Assessment/Plan cholecystitis plan lap russell with grams in AM with Dr. Berry R/B/A d/w pt and pt's daughter Problems: ROSALIA BARAKAT MD Feb 11, 2017 11:42
[2017-02-11] MEDS ORDERED: ACETAMINOPHEN 325 MG TABLET. PO PRN (11:45)
[2017-02-11] MEDS: IV NORMAL SALINE 1000ML BAG 1,000 ML IV SCH (11:45)
[2017-02-11] MEDS: METOPROLOL TART IMMED RELEASE 25 MG TABLET. PO SCH (12:00)
[2017-02-11] MEDS: FAMOTIDINE 20 MG/2 ML VIAL IVP SCH ×2 (12:29→21:31)
--- NOTE | 2017-02-11 12:35 | PDOC ---
PROGRESS NOTES Chief Complaint Chief Complaint Acute Cholecystitis, ABD Pain History of Present Illness History of Present Illness Pt Lying down, AAOx3, NAD Awaiting Surgery Lap Cholecystecomy possible Monday Hold Eliquis 48 hr prior to Surgery Vitals Vitals Vital Signs Date Time Temp Pulse Resp B/P (MAP) Pulse Ox O2 Delivery O2 Flow Rate FiO2 02/11/17 11:06 98.1 76 16 112/49 (70) 94 Nasal Cannula 2.0 98.1 Physical Exam General: Alert, Oriented X3, Cooperative, No acute distress Heart: Regular rate, Normal S1, No murmurs Lungs: Clear Abdomen: Soft, Other (TTP RUQ) Extremities: No clubbing, No cyanosis Skin: No rashes Labs LABS Laboratory Tests Test 02/10/17 17:00 Urine Color Jenelle Urine Clarity Cloudy Urine pH 6.0 Urine Specific [place] 1.025 Urine Protein 30 mg/dL (NEG-TRACE) Urine Glucose (UA) Negative mg/dL (NEG) Urine Ketones (Stick) Negative mg/dL (NEG) Urine Blood Negative (NEG) Urine Nitrite Negative (NEG) Urine Bilirubin Small (NEG) Urine Urobilinogen Dipstick 2.0 mg/dL (0.2 mg/dL) Urine Leukocyte Esterase Moderate (NEG) Urine RBC 0 /HPF (0-2) Urine WBC 5-10 /HPF (0-4) Urine Squamous Epithelial Cells Occ /LPF Urine Amorphous Sediment Present /HPF Urine Bacteria Few /HPF (0-FEW) Urine Mucus Slight /LPF Review of Systems Review of Systems General: No Fatigue, Fever, Chills CV: No Chest Pain, Palpitations Assessment and Plan Assessmemt and Plan Assessment: Abdominal pain Acute cholecystitis due to biliary calculus Current use of anticoagulant therapy Nausea/vomiting Plan: Awaiting Surgery- Lap Amita target Monday- Dr. Berry Continue IVF Continue Antibiotics Continue Pain Meds Continue Home Meds Continue PT/OT Recheck Labs Problems: Comment Review of Relevant I have reviewed the following items elise (where applicable) has been applied. Labs Laboratory Tests Test 02/10/17 00:15 02/10/17 17:00 White Blood Count 14.5 x10^3/uL (4.0-11.0) Red Blood Count 4.30 x10^6/uL (3.50-5.40) Hemoglobin 13.7 g/dL (12.0-15.5) Hematocrit 40.6 % (36.0-47.0) Mean Corpuscular Volume 94 fL (79-100) Mean Corpuscular Hemoglobin 32 pg (25-35) Mean Corpuscular Hemoglobin Concent 34 g/dL (31-37) Red Cell Distribution Width 13.4 % (11.5-14.5) Platelet Count 253 x10^3/uL (140-400) Neutrophils (%) (Auto) 80 % (31-73) Lymphocytes (%) (Auto) 10 % (24-48) Monocytes (%) (Auto) 10 % (0-9) Eosinophils (%) (Auto) 0 % (0-3) Basophils (%) (Auto) 1 % (0-3) Neutrophils # (Auto) 11.6 x10^3uL (1.8-7.7) Lymphocytes # (Auto) 1.4 x10^3/uL (1.0-4.8) Monocytes # (Auto) 1.4 x10^3/uL (0.0-1.1) Eosinophils # (Auto) 0.0 x10^3/uL (0.0-0.7) Basophils # (Auto) 0.1 x10^3/uL (0.0-0.2) Prothrombin Time 14.8 SEC (11.7-14.0) Prothromb Time International Ratio 1.2 (0.8-1.1) Activated Partial Thromboplast Time 30 SEC (24-38) Sodium Level 135 mmol/L (136-145) Potassium Level 3.5 mmol/L (3.5-5.1) Chloride Level 100 mmol/L (98-107) Carbon Dioxide Level 28 mmol/L (21-32) Anion Gap 7 (6-14) Blood Urea Nitrogen 15 mg/dL (7-20) Creatinine 0.9 mg/dL (0.6-1.0) Estimated GFR (Cockcroft-Gault) 59.1 BUN/Creatinine Ratio 17 (6-20) Glucose Level 149 mg/dL (70-99) Calcium Level 8.6 mg/dL (8.5-10.1) Total Bilirubin 1.3 mg/dL (0.2-1.0) Aspartate Amino Transf (AST/SGOT) 16 U/L (15-37) Alanine Aminotransferase (ALT/SGPT) 16 U/L (14-59) Alkaline Phosphatase 89 U/L (46-116) Creatine Kinase 37 U/L (26-192) Creatine Kinase MB (Mass) < 0.5 ng/mL (0.0-3.6) Creatine Kinase MB Relative Index % (0-4) Troponin I Quantitative < 0.017 ng/mL (0.000-0.055) Total Protein 7.0 g/dL (6.4-8.2) Albumin 3.1 g/dL (3.4-5.0) Albumin/Globulin Ratio 0.8 (1.0-1.7) Lipase 79 U/L (73-393) Urine Color Jenelle Urine Clarity Cloudy Urine pH 6.0 Urine Specific [place] 1.025 Urine Protein 30 mg/dL (NEG-TRACE) Urine Glucose (UA) Negative mg/dL (NEG) Urine Ketones (Stick) Negative mg/dL (NEG) Urine Blood Negative (NEG) Urine Nitrite Negative (NEG) Urine Bilirubin Small (NEG) Urine Urobilinogen Dipstick 2.0 mg/dL (0.2 mg/dL) Urine Leukocyte Esterase Moderate (NEG) Urine RBC 0 /HPF (0-2) Urine WBC 5-10 /HPF (0-4) Urine Squamous Epithelial Cells Occ /LPF Urine Amorphous Sediment Present /HPF Urine Bacteria Few /HPF (0-FEW) Urine Mucus Slight /LPF Laboratory Tests Test 02/10/17 17:00 Urine Color Jenelle Urine Clarity Cloudy Urine pH 6.0 Urine Specific [place] 1.025 Urine Protein 30 mg/dL (NEG-TRACE) Urine Glucose (UA) Negative mg/dL (NEG) Urine Ketones (Stick) Negative mg/dL (NEG) Urine Blood Negative (NEG) Urine Nitrite Negative (NEG) Urine Bilirubin Small (NEG) Urine Urobilinogen Dipstick 2.0 mg/dL (0.2 mg/dL) Urine Leukocyte Esterase Moderate (NEG) Urine RBC 0 /HPF (0-2) Urine WBC 5-10 /HPF (0-4) Urine Squamous Epithelial Cells Occ /LPF Urine Amorphous Sediment Present /HPF Urine Bacteria Few /HPF (0-FEW) Urine Mucus Slight /LPF Microbiology 02/10/17 Urine Culture - Preliminary, Resulted 02/10/17 Urine Culture Result 1 (LEILA) - Preliminary, Resulted Medications Current Medications Fentanyl Citrate (Fentanyl 2ml Vial) 50 mcg PRN Q15MIN PRN IV PAIN GREATER THAN 3/10 Last administered on 02/10/17 09:47; Start 02/10/17 at 00:15; Stop 02/10/17 at 12:53; Status DC Sodium Chloride 1,000 ml @ 1,000 mls/hr Q1H IV Last administered on 00:30; Start 02/10/17 at 00:30; Stop 02/10/17 at 01:29; Status DC Ondansetron HCl (Zofran) 4 mg 1X ONCE IV Last administered on 02/10/17 00:32 ; Start 02/10/17 at 00:30; Stop 02/10/17 at 00:31; Status DC Iohexol (Omnipaque 300 Mg/ml) 60 ml 1X ONCE IV Last administered on 01:29; Start 02/10/17 at 01:30; Stop 02/10/17 at 01:31; Status DC Info (Do NOT chart on this entry -- for MONITORING) 1 each PRN DAILY PRN MC SEE COMMENTS; Start 02/10/17 at 01:15; Stop 02/12/17 at 01:14 Piperacillin Sod/ Tazobactam Sod 3.375 gm/Dextrose 50 ml @ 100 mls/hr Q6HRS IV ; Start 02/10/17 at 06:00; Status UNV Ondansetron HCl (Zofran) 4 mg PRN Q8HRS PRN IV NAUSEA/VOMITING; Start at 02:30; Stop 02/11/17 at 02:29; Status DC Morphine Sulfate 2 mg PRN Q2HR PRN IV SEVERE PAIN; Start 02/10/17 at 02:30; Stop 02/11/17 at 02:29; Status DC Fentanyl Citrate (Fentanyl 2ml Vial) 50 mcg PRN Q1HR PRN IV SEVERE PAIN Last administered on 02/10/17 23:59; Start 02/10/17 at 02:30; Stop 02/11/17 at 02 :29; Status DC Piperacillin Sod/ Tazobactam Sod (Zosyn) 3.375 gm 1X ONCE IVP Last administered on 02/10/17 02:41; Start 02/10/17 at 03:00; Stop 02/10/17 at 03 :01; Status DC Potassium Chloride/Dextrose/ Sod Cl 1,000 ml @ 125 mls/hr 1X ONCE IV Last administered on 02/10/17 03:02; Start 02/10/17 at 03:00; Stop 02/10/17 at 10 :59; Status DC Piperacillin Sod/ Tazobactam Sod (Zosyn) 2.25 gm Q6HRS IVP Last administered on 02/11/17 06:11; Start 02/10/17 at 06:00 Lactobacillus Rhamnosus (Culturelle) 1 cap BID PO Last administered on 08:41; Start 02/10/17 at 21:00 Fentanyl Citrate (Fentanyl 2ml Vial) 50 mcg PRN Q2HR PRN IV SEVERE PAIN Last administered on 02/11/17 06:24; Start 02/11/17 at 06:30 Famotidine (Pepcid Vial) 20 mg BID IVP ; Start 02/11/17 at 11:00 Sodium Chloride 1,000 ml @ 75 mls/hr [id number] IV ; Start 02/11/17 at 11:45 Acetaminophen (Tylenol) 650 mg PRN Q6HRS PRN PO MILD PAIN / TEMP; Start at 11:45 Metoprolol Tartrate (Lopressor) 25 mg DAILY PO ; Start 02/11/17 at 12:00 Pantoprazole Sodium (Protonix) 40 mg DAILYAC PO ; Start 02/11/17 at 11:30 Active Scripts Active Tylenol (Acetaminophen) 325 Mg Tablet 650 Mg PO PRN Q6HRS PRN Eliquis (Apixaban) 5 Mg Tablet 5 Mg PO BID Reported Metoprolol Tartrate 25 Mg Tablet Prilosec (Omeprazole) 40 Mg Capsule. 1 Cap PO DAILY Vitals/I & O Vital Sign - Last 24 Hours 02/10/17 02/10/17 02/10/17 02/10/17 15:00 17:36 19:00 19:50 Temp 100.2 98.6 100.2 98.6 Pulse 103 97 Resp 18 18 B/P (MAP) 114/50 (71) 103/58 (73) Pulse Ox 86 86 91 O2 Delivery Room Air Room Air Room Air Nasal Cannula O2 Flow Rate 2.0 2.0 02/10/17 02/10/17 02/11/17 11/25/17 23:00 23:59 00:30 03:00 Temp 99.0 98.9 99.0 98.9 Pulse 97 65 Resp 18 20 20 18 B/P (MAP) 116/77 (90) 102/65 (77) Pulse Ox 91 91 91 92 O2 Delivery Room Air Nasal Cannula Nasal Cannula Room Air O2 Flow Rate 2.0 2.0 02/11/17 02/11/17 02/11/17 02/11/17 06:24 06:55 07:00 08:10 Temp 98.6 98.6 Pulse 82 Resp 20 20 18 B/P (MAP) 92/41 (58) Pulse Ox 92 92 94 O2 Delivery Room Air Nasal Cannula Room Air Nasal Cannula O2 Flow Rate 2.0 2.0 02/11/17 11:06 Temp 98.1 98.1 Pulse 76 Resp 16 B/P (MAP) 112/49 (70) Pulse Ox 94 O2 Delivery Nasal Cannula O2 Flow Rate 2.0 Intake and Output 02/10/17 02/10/17 02/11/17 15:00 23:00 07:00 Intake Total 170 ml 320 ml Output Total 200 ml 500 ml Balance -30 ml -180 ml CURT WREN III DO Feb 11, 2017 12:35
[2017-02-11] MEDS ORDERED: ONDANSETRON PF 4 MG/2 ML VIAL. IV PRN (16:45)
--- NOTE | 2017-02-11 17:59 | PDOC ---
Infectious Disease Note ROS ROS Vital Sign Vital Signs Vital Signs Date Time Temp Pulse Resp B/P (MAP) Pulse Ox O2 Delivery O2 Flow Rate FiO2 02/11/17 15:54 99.0 74 16 101/41 (61) 96 Nasal Cannula 2.0 99.0 Labs Lab Laboratory Tests Test 02/11/17 15:08 Lactic Acid Level 1.2 mmol/L (0.4-2.0) Objective Assessment Acute cholecystitis Leukocytosis Fever A-fib on Eliquis GERD Plan Plan of Care Zosyn f/u am labs and cultures Lap russell scheduled for tomorrow Thank you [id number] Patient seen examined. Chart reviewed in detail. Case discussed with CIRCULAR DISTRIBUTOR. Agree with above JUAN DAVID ORELLANA APRN Feb 11, 2017 17:59 ADINA BELL MD Feb 11, 2017 18:01
--- NOTE | 2017-02-11 21:46 | CONS ---
DATE OF CONSULTATION: 02/10/2017 This is Gorge King NP, dictating for Adina Bell MD., Infectious Disease. REFERRING PHYSICIAN: Dr. Davila. REASON FOR CONSULTATION: Cholecystitis with leukocytosis. HISTORY OF PRESENT ILLNESS: The patient is an 86-year-old female who presented with 3-day history of right upper quadrant pain associated with nausea and vomiting. She had an elevated white blood cell count of 14,500. A CT scan abdomen/pelvis revealed distended gallbladder with pericholecystic fluid and inflammatory changes around the gallbladder without cholelithiasis identified; linear atelectasis at the lung bases and small hiatal hernia. The patient was seen by General Surgery. She has a history of atrial fibrillation, on Eliquis and is scheduled for a laparoscopic cholecystectomy tomorrow. Given her history of atrial fibrillation, on Eliquis, surgery had been delayed until tomorrow. The patient is feeling a little bit better, although she had some nausea and vomiting earlier today. She reports less pain. She is tolerating clear liquids. Denies diarrhea or constipation. She complained of a little bit of short of air and anxiety earlier today and is now on supplemental oxygen. Denies chest pain, cough, wheezing or heart palpitations. No fever within the last 24 hours. Denies chills, sweats or body aches. Denies dysuria, frequency or urgency. Denies rash. PAST MEDICAL HISTORY: Atrial fibrillation on Eliquis, gastroesophageal reflux disease, sick sinus syndrome, macular degeneration, obesity. PAST SURGICAL HISTORY: Pacemaker placement. FAMILY HISTORY: Positive for obesity, cardiovascular disease, and gallbladder disease. SOCIAL HISTORY: The patient is and lives at home. ALLERGIES: SULFA. MEDICATIONS: Zosyn. Other medications are available and have been reviewed on the MAY. REVIEW OF SYSTEMS: Per HPI, otherwise all other review of systems are negative. PHYSICAL EXAMINATION: GENERAL: female lying down, in no apparent distress. VITAL SIGNS: Temperature is 99.0, T-max 100.9, blood pressure 101/41, heart rate 74, respiratory rate 16, pulse oximetry 96% on 2 L nasal cannula, weight 181 pounds, BMI 33. HEENT: Pupils equally round, reactive. Normal conjunctivae. She wears corrective lenses. Oral mucosa is pink and moist. NECK: Supple. LUNGS: Clear. HEART: Normal S1, S2, irregular. ABDOMEN: Obese. Bowel sounds active. Soft, nontender to light palpation. EXTREMITIES: No gross edema or cyanosis. SKIN: Without rash. NEUROLOGIC: Alert and oriented x3. Moves all extremities. LABORATORY DATA: Recent WBC 14.5; hemoglobin 13.7; platelet count 253,000. Sodium 135, potassium 3.5, creatinine 0.9, BUN 15, glucose 149. Lactic acid 1.2, total bilirubin 1.3, AST 16, ALT 16, creatine kinase 37. Troponin less than 0.017. Albumin 3.1, lipase 79. Urinalysis unremarkable for infection with negative urine culture. Blood cultures pending. Abdominal/pelvis CT per HPI. Chest x-ray shows bibasilar atelectasis or scarring. IMPRESSION: 1. Acute cholecystitis. 2. Leukocytosis. 3. Fever. 4. Atrial fibrillation, on anticoagulation therapy. 5. Gastroesophageal reflux disease. PLAN: Continue the Zosyn. We will follow up on morning laboratory values and cultures. The patient is scheduled for a laparoscopic cholecystectomy tomorrow. Supportive care. Thank you, Dr. Davila for asking me to participate in this patient's care. Should you have further questions or concerns, please call. ADINA BELL MD DR: RASHAUN/ata JOB#: [id number] / [id number]
[2017-02-12] VITALS (12 sets, daily range): BP systolic 96–124; BP diastolic 31–64
[2017-02-12] MEDS: PIPERACILLIN/TAZO IV Push 2.25 GM VIAL. IVP SCH ×5 (00:24→23:48)
[2017-02-12] MEDS: IV NORMAL SALINE 1000ML BAG 1,000 ML IV SCH ×2 (00:25→09:48)
[2017-02-12] MEDS: fentaNYL PF VIAL 100 MCG/2 ML VIAL IV PRN ×3 (00:41→10:42)
[2017-02-12 06:01] LABS: BASO % 0 % (0-3); EOS % 1 % (0-3); HEMATOCRIT 31.6 % (36.0-47.0); HEMOGLOBIN 10.5 g/dL (12.0-15.5); LYMPH # 0.9 x10^3/uL (1.0-4.8); LYMPH % 8 % (24-48); MEAN CORPUSCULAR HEMOGLOBIN 32 pg (25-35); MEAN CORPUSCULAR HGB CONC 33 g/dL (31-37); MEAN CORPUSCULAR VOLUME 95 fL (79-100); MONO % 10 % (0-9); NEUT % 81 % (31-73); PLATELET COUNT 185 x10^3/uL (140-400); RED BLOOD COUNT 3.31 x10^6/uL (3.50-5.40); WHITE BLOOD COUNT 10.8 x10^3/uL (4.0-11.0)
[2017-02-12 06:15] LABS: CALCIUM 7.7 mg/dL (8.5-10.1); CREATININE 0.7 mg/dL (0.6-1.0); POTASSIUM 3.3 mmol/L (3.5-5.1)
[2017-02-12] MEDS: PANTOPRAZOLE 40 MG TABLET.DR. PO SCH (07:07)
[2017-02-12] MEDS: METOPROLOL TART IMMED RELEASE 25 MG TABLET. PO SCH (07:07)
[2017-02-12] MEDS: LACTOBACILLUS RHAMNOSUS GG 1 CAPSULE. PO SCH ×2 (07:07→20:06)
[2017-02-12] MEDS ORDERED: IOHEXOL 300 MG/ML 50 ML VIAL. ONE (07:19)
[2017-02-12] MEDS ORDERED: BUPIVAC MPF-EPI 0.5%-1:200000 30 ML VIAL. ONE (07:19)
[2017-02-12] MEDS ORDERED: SURGICEL HEMOSTAT 4X8 EACH. ONE (07:19)
[2017-02-12] MEDS ORDERED: PROPOFOL 20 ML IV ONE (07:25)
[2017-02-12] MEDS ORDERED: ROCURONIUM 50 MG/5 ML VIAL. ONE (07:25)
[2017-02-12] MEDS ORDERED: LIDOCAINE 2% PF Vial for OR 5 ML VIAL. ONE (07:26)
[2017-02-12] MEDS ORDERED: fentaNYL PF VIAL 100 MCG/2 ML VIAL ONE (07:26)
[2017-02-12] MEDS ORDERED: BUPIVAC MPF-EPI 0.5%-1:200000 30 ML VIAL. INJ ONE (08:28)
[2017-02-12] MEDS ORDERED: SURGICEL HEMOSTAT 4X8 EACH. TP ONE (08:28)
[2017-02-12] MEDS ORDERED: IOHEXOL 300 MG/ML 50 ML VIAL. IV ONE (08:28)
[2017-02-12] MEDS ORDERED: ONDANSETRON PF 4 MG/2 ML VIAL. ONE (08:31)
[2017-02-12] MEDS ORDERED: DEXAMETHASONE SOD PHOS 20 MG/5 ML VIAL. ONE (08:31)
[2017-02-12] MEDS ORDERED: GLYCOPYRROLATE 1 MG/5 ML VIAL. ONE (08:36)
[2017-02-12] MEDS ORDERED: NEOSTIGMINE 10 MG/10 ML VIAL. ONE (08:36)
[2017-02-12] MEDS ORDERED: PHENYLEPHRINE in 0.9% NACL PF 1 MG/10 ML DISP.SYRIN. IV ONE (08:39)
[2017-02-12] MEDS: FAMOTIDINE 20 MG/2 ML VIAL IVP SCH ×2 (09:00→20:06)
--- NOTE | 2017-02-12 09:23 | RAD ---
CHOLANGIOGRAM INTRAOPERATIVE History:Intraoperative cholangiogram Comparison: None Findings:4 low-resolution intraprocedural images from a cholangiogram are submitted. Interpretation is made of submitted images only, exam performed by different physician. There has been introduction of contrast into the cystic duct. No intraluminal filling defect is identified of the common bile duct, tapering of the caliber near the pancreatic head. There is contrast in the duodenum. Fluoroscopy time: 14 seconds, 4 images Impression: 1.No intraluminal filling defect is identified of the common bile duct.
--- NOTE | 2017-02-12 09:55 | PDOC ---
BRIEF OPERATIVE NOTE Date: Feb 12, 2017 Pre-Op Diagnosis acute cholecystitis Post-Op Diagnosis same Procedure Performed l/s cholecystectomy with cholangiograms Surgeon Jamal Business Segment Manager Charley Rubio CLAIM BENEFIT SPECIALIST Anesthesia Type: General Blood Loss 50cc IV Fluid 500cc Specimens Obtained GB Findings acute cholecystitis, normal grams Complications none Operative Note WK # [id number] WILVER GREGORIO MD Feb 12, 2017 09:55
[2017-02-12] MEDS ORDERED: PROCHLORPERAZINE 10 MG/2 ML VIAL. ONE (10:00)
[2017-02-12] MEDS ORDERED: MORPHINE SULFATE 2 MG/ML DISP.SYRIN. IV PRN (10:00)
[2017-02-12] MEDS ORDERED: 0.9 % SODIUM CHLORIDE 10 ML DISP.SYRIN. IV PRN (10:00)
[2017-02-12] MEDS: DOCUSATE SODIUM 100 MG CAPSULE. PO SCH ×2 (10:00→20:07)
[2017-02-12] MEDS ORDERED: ONDANSETRON PF 4 MG/2 ML VIAL. IV PRN ×2 (10:00)
[2017-02-12] MEDS ORDERED: diphenhydrAMINE HCL 25 MG CAPSULE PO PRN (10:00)
[2017-02-12] MEDS ORDERED: HYDROmorphone 2 MG/ML VIAL IV PRN (10:00)
[2017-02-12] MEDS ORDERED: PROCHLORPERAZINE 10 MG/2 ML VIAL. IV PRN (10:00)
[2017-02-12] MEDS ORDERED: fentaNYL PF VIAL 100 MCG/2 ML VIAL IV PRN (10:00)
[2017-02-12] MEDS ORDERED: DEXTROSE 50% 25 GM / 50ML DISP.SYRIN. IV PRN (10:00)
[2017-02-12] MEDS ORDERED: diphenhydrAMINE 50 MG/ML VIAL IV PRN (10:00)
[2017-02-12] MEDS ORDERED: LIDOCAINE 1% PF 2 ML VIAL. ID PRN (10:00)
[2017-02-12] MEDS ORDERED: IV RINGERS,LACTATED 1000ML 1,000 ML IV SCH (10:00)
--- NOTE | 2017-02-12 10:06 | PDOC ---
G I PROGRESS NOTE Subjective Off floor; probably in recovery. Objective IOC, brief op note reviewed. Physical Exam No PE. Review of Relevant I have reviewed the following items elise (where applicable) has been applied. Labs Laboratory Tests Test 02/10/17 17:00 02/11/17 15:08 02/12/17 05:40 Urine Color Jenelle Urine Clarity Cloudy Urine pH 6.0 Urine Specific [place] 1.025 Urine Protein 30 mg/dL (NEG-TRACE) Urine Glucose (UA) Negative mg/dL (NEG) Urine Ketones (Stick) Negative mg/dL (NEG) Urine Blood Negative (NEG) Urine Nitrite Negative (NEG) Urine Bilirubin Small (NEG) Urine Urobilinogen Dipstick 2.0 mg/dL (0.2 mg/dL) Urine Leukocyte Esterase Moderate (NEG) Urine RBC 0 /HPF (0-2) Urine WBC 5-10 /HPF (0-4) Urine Squamous Epithelial Cells Occ /LPF Urine Amorphous Sediment Present /HPF Urine Bacteria Few /HPF (0-FEW) Urine Mucus Slight /LPF Lactic Acid Level 1.2 mmol/L (0.4-2.0) White Blood Count 10.8 x10^3/uL (4.0-11.0) Red Blood Count 3.31 x10^6/uL (3.50-5.40) Hemoglobin 10.5 g/dL (12.0-15.5) Hematocrit 31.6 % (36.0-47.0) Mean Corpuscular Volume 95 fL (79-100) Mean Corpuscular Hemoglobin 32 pg (25-35) Mean Corpuscular Hemoglobin Concent 33 g/dL (31-37) Red Cell Distribution Width 13.0 % (11.5-14.5) Platelet Count 185 x10^3/uL (140-400) Neutrophils (%) (Auto) 81 % (31-73) Lymphocytes (%) (Auto) 8 % (24-48) Monocytes (%) (Auto) 10 % (0-9) Eosinophils (%) (Auto) 1 % (0-3) Basophils (%) (Auto) 0 % (0-3) Neutrophils # (Auto) 8.7 x10^3uL (1.8-7.7) Lymphocytes # (Auto) 0.9 x10^3/uL (1.0-4.8) Monocytes # (Auto) 1.1 x10^3/uL (0.0-1.1) Eosinophils # (Auto) 0.1 x10^3/uL (0.0-0.7) Basophils # (Auto) 0.0 x10^3/uL (0.0-0.2) Sodium Level 139 mmol/L (136-145) Potassium Level 3.3 mmol/L (3.5-5.1) Chloride Level 106 mmol/L (98-107) Carbon Dioxide Level 28 mmol/L (21-32) Anion Gap 5 (6-14) Blood Urea Nitrogen 8 mg/dL (7-20) Creatinine 0.7 mg/dL (0.6-1.0) Estimated GFR (Cockcroft-Gault) 79.0 Glucose Level 101 mg/dL (70-99) Calcium Level 7.7 mg/dL (8.5-10.1) Laboratory Tests Test 02/11/17 15:08 02/12/17 05:40 Lactic Acid Level 1.2 mmol/L (0.4-2.0) White Blood Count 10.8 x10^3/uL (4.0-11.0) Red Blood Count 3.31 x10^6/uL (3.50-5.40) Hemoglobin 10.5 g/dL (12.0-15.5) Hematocrit 31.6 % (36.0-47.0) Mean Corpuscular Volume 95 fL (79-100) Mean Corpuscular Hemoglobin 32 pg (25-35) Mean Corpuscular Hemoglobin Concent 33 g/dL (31-37) Red Cell Distribution Width 13.0 % (11.5-14.5) Platelet Count 185 x10^3/uL (140-400) Neutrophils (%) (Auto) 81 % (31-73) Lymphocytes (%) (Auto) 8 % (24-48) Monocytes (%) (Auto) 10 % (0-9) Eosinophils (%) (Auto) 1 % (0-3) Basophils (%) (Auto) 0 % (0-3) Neutrophils # (Auto) 8.7 x10^3uL (1.8-7.7) Lymphocytes # (Auto) 0.9 x10^3/uL (1.0-4.8) Monocytes # (Auto) 1.1 x10^3/uL (0.0-1.1) Eosinophils # (Auto) 0.1 x10^3/uL (0.0-0.7) Basophils # (Auto) 0.0 x10^3/uL (0.0-0.2) Sodium Level 139 mmol/L (136-145) Potassium Level 3.3 mmol/L (3.5-5.1) Chloride Level 106 mmol/L (98-107) Carbon Dioxide Level 28 mmol/L (21-32) Anion Gap 5 (6-14) Blood Urea Nitrogen 8 mg/dL (7-20) Creatinine 0.7 mg/dL (0.6-1.0) Estimated GFR (Cockcroft-Gault) 79.0 Glucose Level 101 mg/dL (70-99) Calcium Level 7.7 mg/dL (8.5-10.1) Microbiology 02/10/17 Urine Culture - Preliminary, Resulted 02/10/17 Urine Culture Result 1 (LEILA) - Preliminary, Resulted Medications Current Medications Fentanyl Citrate (Fentanyl 2ml Vial) 50 mcg PRN Q15MIN PRN IV PAIN GREATER THAN 3/10 Last administered on 02/10/17 09:47; Start 02/10/17 at 00:15; Stop 02/10/17 at 12:53; Status DC Sodium Chloride 1,000 ml @ 1,000 mls/hr Q1H IV Last administered on 00:30; Start 02/10/17 at 00:30; Stop 02/10/17 at 01:29; Status DC Ondansetron HCl (Zofran) 4 mg 1X ONCE IV Last administered on 02/10/17 00:32 ; Start 02/10/17 at 00:30; Stop 02/10/17 at 00:31; Status DC Iohexol (Omnipaque 300 Mg/ml) 60 ml 1X ONCE IV Last administered on 01:29; Start 02/10/17 at 01:30; Stop 02/10/17 at 01:31; Status DC Info (Do NOT chart on this entry -- for MONITORING) 1 each PRN DAILY PRN MC SEE COMMENTS; Start 02/10/17 at 01:15; Stop 02/12/17 at 01:14; Status DC Piperacillin Sod/ Tazobactam Sod 3.375 gm/Dextrose 50 ml @ 100 mls/hr Q6HRS IV ; Start 02/10/17 at 06:00; Status UNV Ondansetron HCl (Zofran) 4 mg PRN Q8HRS PRN IV NAUSEA/VOMITING; Start at 02:30; Stop 02/11/17 at 02:29; Status DC Morphine Sulfate 2 mg PRN Q2HR PRN IV SEVERE PAIN; Start 02/10/17 at 02:30; Stop 02/11/17 at 02:29; Status DC Fentanyl Citrate (Fentanyl 2ml Vial) 50 mcg PRN Q1HR PRN IV SEVERE PAIN Last administered on 02/10/17 23:59; Start 02/10/17 at 02:30; Stop 02/11/17 at 02 :29; Status DC Piperacillin Sod/ Tazobactam Sod (Zosyn) 3.375 gm 1X ONCE IVP Last administered on 02/10/17 02:41; Start 02/10/17 at 03:00; Stop 02/10/17 at 03 :01; Status DC Potassium Chloride/Dextrose/ Sod Cl 1,000 ml @ 125 mls/hr 1X ONCE IV Last administered on 02/10/17 03:02; Start 02/10/17 at 03:00; Stop 02/10/17 at 10 :59; Status DC Piperacillin Sod/ Tazobactam Sod (Zosyn) 2.25 gm Q6HRS IVP Last administered on 02/12/17 05:59; Start 02/10/17 at 06:00 Lactobacillus Rhamnosus (Culturelle) 1 cap BID PO Last administered on 21:31; Start 02/10/17 at 21:00 Fentanyl Citrate (Fentanyl 2ml Vial) 50 mcg PRN Q2HR PRN IV SEVERE PAIN Last administered on 02/12/17 00:41; Start 02/11/17 at 06:30 Famotidine (Pepcid Vial) 20 mg BID IVP Last administered on 02/11/17 21:31; Start 02/11/17 at 11:00 Sodium Chloride 1,000 ml @ 50 mls/hr Q20H IV Last administered on 02/12/17 09:48; Start 02/11/17 at 11:45 Acetaminophen (Tylenol) 650 mg PRN Q6HRS PRN PO MILD PAIN / TEMP Last administered on 02/12/17 00:25; Start 02/11/17 at 11:45 Metoprolol Tartrate (Lopressor) 25 mg DAILY PO ; Start 02/11/17 at 12:00 Pantoprazole Sodium (Protonix) 40 mg DAILYAC PO ; Start 02/11/17 at 11:30 Ondansetron HCl (Zofran) 4 mg PRN Q8HRS PRN IV NAUSEA/VOMITING; Start at 16:45 Bupivacaine HCl/ Epinephrine Bitart (Sensorcain-Mpf Epi 0.5%-1:[id number]) 30 ml STK -MED ONCE INJ Last administered on 02/12/17 08:28; Start 02/12/17 at 08:28; Stop 02/12/17 at 09:02; Status DC Iohexol (Omnipaque 300 Mg/ml) 50 ml STK-MED ONCE IV Last administered on 08:28; Start 02/12/17 at 08:28; Stop 02/12/17 at 09:02; Status DC Cellulose 1 each STK-MED ONCE TP Last administered on 02/12/17 08:28; Start 02/12/17 at 08:28; Stop 02/12/17 at 09:02; Status DC Diphenhydramine HCl (Benadryl) 25 mg PRN Q6HRS PRN PO ITCHING; Start 02/12/17 at 10:00 Diphenhydramine HCl (Benadryl) 25 mg PRN Q6HRS PRN IV ITCHING; Start 02/12/17 at 10:00 Sodium Chloride (Normal Saline Flush) 3 ml QSHIFT PRN IV AFTER MEDS AND BLOOD DRAWS; Start 02/12/17 at 10:00 Dextrose (Dextrose 50%-Water Syringe) 12.5 gm PRN Q15MIN PRN IV SEE COMMENTS; Start 02/12/17 at 10:00 Acetaminophen/ Hydrocodone Bitart (Lortab 5/325) 1 tab PRN Q4HRS PRN PO MILD PAIN; Start 02/12/17 at 10:00 Hydromorphone HCl (Dilaudid) 0.5 mg PRN Q3HRS PRN IV PAIN; Start 02/12/17 at 10:00 Docusate Sodium (Colace) 100 mg BID PO ; Start 02/12/17 at 10:00 Ondansetron HCl (Zofran) 4 mg PRN Q6HRS PRN IV NAUESA, 1ST CHOICE; Start 02/12 at 10:00 Ondansetron HCl (Zofran) 4 mg PRN Q6HRS PRN IV NAUSEA/VOMITING; Start at 10:00; Stop 02/12/17 at 18:00 Fentanyl Citrate (Fentanyl 2ml Vial) 25 mcg PRN Q5MIN PRN IV MILD PAIN; Start 02/12/17 at 10:00; Stop 02/12/17 at 18:00 Fentanyl Citrate (Fentanyl 2ml Vial) 50 mcg PRN Q5MIN PRN IV MODERATE PAIN; Start 02/12/17 at 10:00; Stop 02/12/17 at 18:00 Morphine Sulfate 1 mg PRN Q10MIN PRN IV SEVERE PAIN; Start 02/12/17 at 10:00; Stop 02/13/17 at 09:59; Status UNV Ringer's Solution 1,000 ml @ 30 mls/hr Q24H IV ; Start 02/12/17 at 10:00; Stop 02/12/17 at 21:59; Status UNV Lidocaine HCl (Xylocaine-Mpf 1% Vial) 2 ml 1X PRN PRN ID IV START; Start 02/12 at 10:00; Stop 02/13/17 at 09:59; Status UNV Hydromorphone HCl (Dilaudid) 0.5 mg PRN Q10MIN PRN IV SEV PAIN, Second choice; Start 02/12/17 at 10:00; Stop 02/13/17 at 09:59; Status UNV Prochlorperazine Edisylate (Compazine) 5 mg PACU PRN PRN IV NAUSEA, MRX1; Start 02/12/17 at 10:00; Stop 02/13/17 at 09:59; Status UNV Active Scripts Active Tylenol (Acetaminophen) 325 Mg Tablet 650 Mg PO PRN Q6HRS PRN Eliquis (Apixaban) 5 Mg Tablet 5 Mg PO BID Reported Metoprolol Tartrate 25 Mg Tablet Prilosec (Omeprazole) 40 Mg Capsule.dr 1 Cap PO DAILY Vitals/I & O Vital Sign - Last 24 Hours 02/11/17 02/11/17 02/11/17 02/11/17 11:06 12:00 15:08 15:54 Temp 98.1 99.0 99.0 98.1 99.0 99.0 Pulse 76 76 96 74 Resp 16 16 16 B/P (MAP) 112/49 (70) 112/49 89/42 (58) 101/41 (61) Pulse Ox 94 95 96 O2 Delivery Nasal Cannula Nasal Cannula Nasal Cannula O2 Flow Rate 2.0 2.0 2.0 02/11/17 02/11/17 02/11/17 02/11/17 18:00 19:00 20:00 21:14 Temp 97.7 97.9 97.7 97.9 Pulse 93 113 Resp 16 18 B/P (MAP) 105/41 (62) 95/62 (73) 94/48 (63) Pulse Ox 94 93 O2 Delivery Nasal Cannula Nasal Cannula Nasal Cannula O2 Flow Rate 2.0 2.0 2.0 02/11/17 02/11/17 02/12/17 02/12/17 22:00 23:00 00:41 01:11 Temp 99.8 99.8 Pulse 110 Resp 18 16 16 B/P (MAP) 98/47 (64) 96/58 (71) Pulse Ox 96 96 96 O2 Delivery Nasal Cannula Nasal Cannula Nasal Cannula O2 Flow Rate 2.0 2.0 2.0 02/12/17 02/12/17 02/12/17 02/12/17 03:00 06:00 06:00 07:00 Temp 99.2 99.2 97.9 99.2 99.2 97.9 Pulse 99 99 94 96 Resp 18 B/P (MAP) 113/64 (80) 113/64 (80) 121/47 (71) 124/55 (78) Pulse Ox 91 91 92 O2 Delivery Nasal Cannula Nasal Cannula Nasal Cannula O2 Flow Rate 2.0 2.0 2.0 02/12/17 07:07 Pulse 94 B/P (MAP) 121/47 Intake and Output 02/11/17 02/11/17 02/12/17 15:00 23:00 07:00 Intake Total 900 ml 120 ml Output Total 1850 ml 200 ml Balance -950 ml -80 ml Problem List Problems Medical Problems: (1) Abdominal pain Status: Acute (2) Acute cholecystitis due to biliary calculus Status: Acute (3) Current use of anticoagulant therapy Status: Acute (4) Nausea & vomiting Status: Acute Assessment S/p lap russell. Plan of Care Note Plans per surgery, primary. SHIREEN CARO MD Feb 12, 2017 10:06
[2017-02-12] MEDS: POTASSIUM CHLORIDE 20 MEQ TABLET.ER. PO ONE (10:30)
--- NOTE | 2017-02-12 10:41 | OP ---
DATE OF SURGERY: 02/12/2017 PREOPERATIVE DIAGNOSIS: Acute cholecystitis. POSTOPERATIVE DIAGNOSIS: Acute cholecystitis. PROCEDURE: Laparoscopic cholecystectomy with cholangiogram. SURGEON: Cory Gregorio MD. TRAIN GATEMAN: Dillon Rubio CFA. ANESTHESIA: General endotracheal. ESTIMATED BLOOD LOSS: 50. IV FLUID: 500. INDICATIONS: The patient is an 86-year-old lady who came in with acute cholecystitis and taking Eliquis. Her anticoagulants were held for 48 hours while receiving antibiotics. She was brought for cholecystectomy. OPERATIVE FINDINGS: The liver was somewhat fibrotic, but it was sharp and smooth. The gallbladder was distended, edematous, some early necrotic changes were present. Cholangiograms were normal. Moderate amount of turbid fluid was present in the abdomen. Otherwise, inspection with the laparoscope failed to reveal obvious abnormalities. DESCRIPTION OF PROCEDURE: The patient was brought to the operating suite, given a general endotracheal anesthetic and the abdomen prepped and draped in usual sterile fashion. A supraumbilical incision was infiltrated with local anesthetic, incised and a 5 mm Visiport placed safely into the abdominal cavity, taking care to avoid injury to abdominal contents. Pneumoperitoneum established. Camera inserted. Inspection carried out with results as noted above. Under direct vision, the epigastric, midclavicular and lateral ports were placed. The gallbladder was exposed by sweeping the omentum down from it. The fundus was then used to aspirate approximately 90 mL of concentrated bile to allow grasping of the gallbladder. It was then grasped and retracted superolaterally. A careful blunt dissection exposed the cystic duct and cystic artery. The duct was clipped on the gallbladder side. Cholangiograms were made. These were normal. In light of this, the catheter was removed. The cystic duct was clipped and divided, taking care to avoid injury or compromise of the common duct. The cystic artery was clipped x 2 and divided and the gallbladder freed from the bed with cautery dissection and placed in an EndoCatch bag. Some oozing from the liver bed was controlled with cautery and a piece of Surgicel. A 19-Greenlandic round Yeyo drain was brought through the epigastric port out the lateral port, sewn to the skin with silk stitch and left in the subhepatic space for postoperative drainage. Table returned to level. Gallbladder delivered through the epigastric incision. Epigastric incision closed with interrupted 0 Vicryl suture. Intra-abdominal pressure decreased to 6 cm of water. No bleeding from the epigastric closure or from the midclavicular port site after its removal or from the drain site. Abdomen decompressed, camera slowly removed, no bleeding seen. Skin incisions closed with subcuticular 4-0 Monocryl. Steri-Strips and sterile dressings applied. The patient was awakened from her anesthetic and taken to the recovery room in satisfactory condition. CORY GREGORIO MD DR: GIUSEPPE/ata JOB#: [id number] / [id number]
[2017-02-12] MEDS ORDERED: ALBUTEROL SULFATE 2.5 MG/3 ML NEBU. NEB STA (11:18)
--- NOTE | 2017-02-12 11:36 | PDOC ---
Infectious Disease Note Subjective Subjective s/p lap chol earlier this morning No fever last 24 hours Pain controlled ROS ROS GEN: Denies chills CV: Denies chest pain RESP: Denies shortness of air, cough GI: Denies n/v/d Vital Sign Vital Signs Vital Signs Date Time Temp Pulse Resp B/P (MAP) Pulse Ox O2 Delivery O2 Flow Rate FiO2 02/12/17 10:42 18 02/12/17 10:32 97.2 78 101/47 90 Simple Mask 10 97.2 Physical Exam PHYSICAL EXAM GENERAL: Sleepy HEENT: OC pink, dry NECK: Supple. LUNGS: Clear. HEART: Normal S1, S2, irregular. PPM ABDOMEN: Obese, BS active, soft right-sided drain intact EXTREMITIES: No gross edema or cyanosis. SKIN: Without rash. NEUROLOGIC: Responds appropriately Labs Lab Laboratory Tests Test 02/11/17 15:08 02/12/17 05:40 Lactic Acid Level 1.2 mmol/L (0.4-2.0) White Blood Count 10.8 x10^3/uL (4.0-11.0) Red Blood Count 3.31 x10^6/uL (3.50-5.40) Hemoglobin 10.5 g/dL (12.0-15.5) Hematocrit 31.6 % (36.0-47.0) Mean Corpuscular Volume 95 fL (79-100) Mean Corpuscular Hemoglobin 32 pg (25-35) Mean Corpuscular Hemoglobin Concent 33 g/dL (31-37) Red Cell Distribution Width 13.0 % (11.5-14.5) Platelet Count 185 x10^3/uL (140-400) Neutrophils (%) (Auto) 81 % (31-73) Lymphocytes (%) (Auto) 8 % (24-48) Monocytes (%) (Auto) 10 % (0-9) Eosinophils (%) (Auto) 1 % (0-3) Basophils (%) (Auto) 0 % (0-3) Neutrophils # (Auto) 8.7 x10^3uL (1.8-7.7) Lymphocytes # (Auto) 0.9 x10^3/uL (1.0-4.8) Monocytes # (Auto) 1.1 x10^3/uL (0.0-1.1) Eosinophils # (Auto) 0.1 x10^3/uL (0.0-0.7) Basophils # (Auto) 0.0 x10^3/uL (0.0-0.2) Sodium Level 139 mmol/L (136-145) Potassium Level 3.3 mmol/L (3.5-5.1) Chloride Level 106 mmol/L (98-107) Carbon Dioxide Level 28 mmol/L (21-32) Anion Gap 5 (6-14) Blood Urea Nitrogen 8 mg/dL (7-20) Creatinine 0.7 mg/dL (0.6-1.0) Estimated GFR (Cockcroft-Gault) 79.0 Glucose Level 101 mg/dL (70-99) Calcium Level 7.7 mg/dL (8.5-10.1) Micro BC pending Objective Assessment Acute cholecystitis, s/p lap russell 02/12 Leukocytosis Fever A-fib on Eliquis GERD Plan Plan of Care Zosyn f/u am labs and cultures Supportive care Patient seen and examined. Case discussed with ROD PLACER. Chart reviewed in [place]. Agree with above plan. JUAN DAVID ORELLANA APRN Feb 12, 2017 11:36 ADINA BELL MD Feb 12, 2017 16:28
[2017-02-12] MEDS: HYDROmorphone 2 MG/ML VIAL IV PRN ×2 (12:52→15:46)
--- NOTE | 2017-02-12 14:28 | PDOC ---
PROGRESS NOTES Chief Complaint Chief Complaint Acute Cholecystitis Abd Pain History of Present Illness History of Present Illness Pt seen at bedside. Resting in NAD. Vitals Vitals Vital Signs Date Time Temp Pulse Resp B/P (MAP) Pulse Ox O2 Delivery O2 Flow Rate FiO2 02/12/17 12:52 Nasal Cannula 4.0 02/12/17 11:47 94 02/12/17 11:00 97.9 78 16 102/43 (62) 97.9 Physical Exam General: No acute distress, Other (sleeping) Heart: Regular rate, Normal S1, Normal S2, No murmurs Lungs: Clear, Other (No rales, rhonchi, or wheezes) Extremities: No clubbing, No cyanosis Skin: No rashes, Other (CDI dressing) Labs LABS Laboratory Tests Test 02/11/17 15:08 02/12/17 05:40 Lactic Acid Level 1.2 mmol/L (0.4-2.0) White Blood Count 10.8 x10^3/uL (4.0-11.0) Red Blood Count 3.31 x10^6/uL (3.50-5.40) Hemoglobin 10.5 g/dL (12.0-15.5) Hematocrit 31.6 % (36.0-47.0) Mean Corpuscular Volume 95 fL (79-100) Mean Corpuscular Hemoglobin 32 pg (25-35) Mean Corpuscular Hemoglobin Concent 33 g/dL (31-37) Red Cell Distribution Width 13.0 % (11.5-14.5) Platelet Count 185 x10^3/uL (140-400) Neutrophils (%) (Auto) 81 % (31-73) Lymphocytes (%) (Auto) 8 % (24-48) Monocytes (%) (Auto) 10 % (0-9) Eosinophils (%) (Auto) 1 % (0-3) Basophils (%) (Auto) 0 % (0-3) Neutrophils # (Auto) 8.7 x10^3uL (1.8-7.7) Lymphocytes # (Auto) 0.9 x10^3/uL (1.0-4.8) Monocytes # (Auto) 1.1 x10^3/uL (0.0-1.1) Eosinophils # (Auto) 0.1 x10^3/uL (0.0-0.7) Basophils # (Auto) 0.0 x10^3/uL (0.0-0.2) Sodium Level 139 mmol/L (136-145) Potassium Level 3.3 mmol/L (3.5-5.1) Chloride Level 106 mmol/L (98-107) Carbon Dioxide Level 28 mmol/L (21-32) Anion Gap 5 (6-14) Blood Urea Nitrogen 8 mg/dL (7-20) Creatinine 0.7 mg/dL (0.6-1.0) Estimated GFR (Cockcroft-Gault) 79.0 Glucose Level 101 mg/dL (70-99) Calcium Level 7.7 mg/dL (8.5-10.1) Review of Systems Review of Systems Unobtainable. Assessment and Plan Assessmemt and Plan Problems Medical Problems: (1) Abdominal pain Status: Acute (2) Acute cholecystitis due to biliary calculus Status: Acute (3) Current use of anticoagulant therapy Status: Acute (4) Nausea & vomiting Status: Acute ASSESSMENT: Acute Cholecystitis Abd Pain PLAN: Pt Post Op. EZE drain in RUQ CDI dressing Continue with wound care Begin advancing diet when ok with surgery Recheck labs Possible discharge after 3 more days. Problems: Comment Review of Relevant I have reviewed the following items elise (where applicable) has been applied. Labs Laboratory Tests Test 02/10/17 17:00 02/11/17 15:08 02/12/17 05:40 Urine Color Jenelle Urine Clarity Cloudy Urine pH 6.0 Urine Specific [place] 1.025 Urine Protein 30 mg/dL (NEG-TRACE) Urine Glucose (UA) Negative mg/dL (NEG) Urine Ketones (Stick) Negative mg/dL (NEG) Urine Blood Negative (NEG) Urine Nitrite Negative (NEG) Urine Bilirubin Small (NEG) Urine Urobilinogen Dipstick 2.0 mg/dL (0.2 mg/dL) Urine Leukocyte Esterase Moderate (NEG) Urine RBC 0 /HPF (0-2) Urine WBC 5-10 /HPF (0-4) Urine Squamous Epithelial Cells Occ /LPF Urine Amorphous Sediment Present /HPF Urine Bacteria Few /HPF (0-FEW) Urine Mucus Slight /LPF Lactic Acid Level 1.2 mmol/L (0.4-2.0) White Blood Count 10.8 x10^3/uL (4.0-11.0) Red Blood Count 3.31 x10^6/uL (3.50-5.40) Hemoglobin 10.5 g/dL (12.0-15.5) Hematocrit 31.6 % (36.0-47.0) Mean Corpuscular Volume 95 fL (79-100) Mean Corpuscular Hemoglobin 32 pg (25-35) Mean Corpuscular Hemoglobin Concent 33 g/dL (31-37) Red Cell Distribution Width 13.0 % (11.5-14.5) Platelet Count 185 x10^3/uL (140-400) Neutrophils (%) (Auto) 81 % (31-73) Lymphocytes (%) (Auto) 8 % (24-48) Monocytes (%) (Auto) 10 % (0-9) Eosinophils (%) (Auto) 1 % (0-3) Basophils (%) (Auto) 0 % (0-3) Neutrophils # (Auto) 8.7 x10^3uL (1.8-7.7) Lymphocytes # (Auto) 0.9 x10^3/uL (1.0-4.8) Monocytes # (Auto) 1.1 x10^3/uL (0.0-1.1) Eosinophils # (Auto) 0.1 x10^3/uL (0.0-0.7) Basophils # (Auto) 0.0 x10^3/uL (0.0-0.2) Sodium Level 139 mmol/L (136-145) Potassium Level 3.3 mmol/L (3.5-5.1) Chloride Level 106 mmol/L (98-107) Carbon Dioxide Level 28 mmol/L (21-32) Anion Gap 5 (6-14) Blood Urea Nitrogen 8 mg/dL (7-20) Creatinine 0.7 mg/dL (0.6-1.0) Estimated GFR (Cockcroft-Gault) 79.0 Glucose Level 101 mg/dL (70-99) Calcium Level 7.7 mg/dL (8.5-10.1) Laboratory Tests Test 02/11/17 15:08 02/12/17 05:40 Lactic Acid Level 1.2 mmol/L (0.4-2.0) White Blood Count 10.8 x10^3/uL (4.0-11.0) Red Blood Count 3.31 x10^6/uL (3.50-5.40) Hemoglobin 10.5 g/dL (12.0-15.5) Hematocrit 31.6 % (36.0-47.0) Mean Corpuscular Volume 95 fL (79-100) Mean Corpuscular Hemoglobin 32 pg (25-35) Mean Corpuscular Hemoglobin Concent 33 g/dL (31-37) Red Cell Distribution Width 13.0 % (11.5-14.5) Platelet Count 185 x10^3/uL (140-400) Neutrophils (%) (Auto) 81 % (31-73) Lymphocytes (%) (Auto) 8 % (24-48) Monocytes (%) (Auto) 10 % (0-9) Eosinophils (%) (Auto) 1 % (0-3) Basophils (%) (Auto) 0 % (0-3) Neutrophils # (Auto) 8.7 x10^3uL (1.8-7.7) Lymphocytes # (Auto) 0.9 x10^3/uL (1.0-4.8) Monocytes # (Auto) 1.1 x10^3/uL (0.0-1.1) Eosinophils # (Auto) 0.1 x10^3/uL (0.0-0.7) Basophils # (Auto) 0.0 x10^3/uL (0.0-0.2) Sodium Level 139 mmol/L (136-145) Potassium Level 3.3 mmol/L (3.5-5.1) Chloride Level 106 mmol/L (98-107) Carbon Dioxide Level 28 mmol/L (21-32) Anion Gap 5 (6-14) Blood Urea Nitrogen 8 mg/dL (7-20) Creatinine 0.7 mg/dL (0.6-1.0) Estimated GFR (Cockcroft-Gault) 79.0 Glucose Level 101 mg/dL (70-99) Calcium Level 7.7 mg/dL (8.5-10.1) Microbiology 02/10/17 Urine Culture - Final, Complete 02/10/17 Urine Culture Result 1 (LEILA) - Final, Complete Medications Current Medications Fentanyl Citrate (Fentanyl 2ml Vial) 50 mcg PRN Q15MIN PRN IV PAIN GREATER THAN 3/10 Last administered on 02/10/17 09:47; Start 02/10/17 at 00:15; Stop 02/10/17 at 12:53; Status DC Sodium Chloride 1,000 ml @ 1,000 mls/hr Q1H IV Last administered on 00:30; Start 02/10/17 at 00:30; Stop 02/10/17 at 01:29; Status DC Ondansetron HCl (Zofran) 4 mg 1X ONCE IV Last administered on 02/10/17 00:32 ; Start 02/10/17 at 00:30; Stop 02/10/17 at 00:31; Status DC Iohexol (Omnipaque 300 Mg/ml) 60 ml 1X ONCE IV Last administered on 01:29; Start 02/10/17 at 01:30; Stop 02/10/17 at 01:31; Status DC Info (Do NOT chart on this entry -- for MONITORING) 1 each PRN DAILY PRN MC SEE COMMENTS; Start 02/10/17 at 01:15; Stop 02/12/17 at 01:14; Status DC Piperacillin Sod/ Tazobactam Sod 3.375 gm/Dextrose 50 ml @ 100 mls/hr Q6HRS IV ; Start 02/10/17 at 06:00; Status UNV Ondansetron HCl (Zofran) 4 mg PRN Q8HRS PRN IV NAUSEA/VOMITING; Start at 02:30; Stop 02/11/17 at 02:29; Status DC Morphine Sulfate 2 mg PRN Q2HR PRN IV SEVERE PAIN; Start 02/10/17 at 02:30; Stop 02/11/17 at 02:29; Status DC Fentanyl Citrate (Fentanyl 2ml Vial) 50 mcg PRN Q1HR PRN IV SEVERE PAIN Last administered on 02/10/17 23:59; Start 02/10/17 at 02:30; Stop 02/11/17 at 02 :29; Status DC Piperacillin Sod/ Tazobactam Sod (Zosyn) 3.375 gm 1X ONCE IVP Last administered on 02/10/17 02:41; Start 02/10/17 at 03:00; Stop 02/10/17 at 03 :01; Status DC Potassium Chloride/Dextrose/ Sod Cl 1,000 ml @ 125 mls/hr 1X ONCE IV Last administered on 02/10/17 03:02; Start 02/10/17 at 03:00; Stop 02/10/17 at 10 :59; Status DC Piperacillin Sod/ Tazobactam Sod (Zosyn) 2.25 gm Q6HRS IVP Last administered on 02/12/17 12:57; Start 02/10/17 at 06:00 Lactobacillus Rhamnosus (Culturelle) 1 cap BID PO Last administered on 21:31; Start 02/10/17 at 21:00 Fentanyl Citrate (Fentanyl 2ml Vial) 50 mcg PRN Q2HR PRN IV SEVERE PAIN Last administered on 02/12/17 00:41; Start 02/11/17 at 06:30 Famotidine (Pepcid Vial) 20 mg BID IVP Last administered on 02/11/17 21:31; Start 02/11/17 at 11:00 Sodium Chloride 1,000 ml @ 50 mls/hr Q20H IV Last administered on 02/12/17 09:48; Start 02/11/17 at 11:45 Acetaminophen (Tylenol) 650 mg PRN Q6HRS PRN PO MILD PAIN / TEMP Last administered on 02/12/17 00:25; Start 02/11/17 at 11:45 Metoprolol Tartrate (Lopressor) 25 mg DAILY PO ; Start 02/11/17 at 12:00 Pantoprazole Sodium (Protonix) 40 mg DAILYAC PO ; Start 02/11/17 at 11:30; Stop 02/12/17 at 13:54; Status DC Ondansetron HCl (Zofran) 4 mg PRN Q8HRS PRN IV NAUSEA/VOMITING; Start at 16:45; Stop 02/12/17 at 13:53; Status DC Bupivacaine HCl/ Epinephrine Bitart (Sensorcain-Mpf Epi 0.5%-1:073649) 30 ml STK -MED ONCE INJ Last administered on 02/12/17 08:28; Start 02/12/17 at 08:28; Stop 02/12/17 at 09:02; Status DC Iohexol (Omnipaque 300 Mg/ml) 50 ml STK-MED ONCE IV Last administered on 08:28; Start 02/12/17 at 08:28; Stop 02/12/17 at 09:02; Status DC Cellulose 1 each STK-MED ONCE TP Last administered on 02/12/17 08:28; Start 02/12/17 at 08:28; Stop 02/12/17 at 09:02; Status DC Diphenhydramine HCl (Benadryl) 25 mg PRN Q6HRS PRN PO ITCHING; Start 02/12/17 at 10:00 Diphenhydramine HCl (Benadryl) 25 mg PRN Q6HRS PRN IV ITCHING; Start 02/12/17 at 10:00 Sodium Chloride (Normal Saline Flush) 3 ml QSHIFT PRN IV AFTER MEDS AND BLOOD DRAWS; Start 02/12/17 at 10:00 Dextrose (Dextrose 50%-Water Syringe) 12.5 gm PRN Q15MIN PRN IV SEE COMMENTS; Start 02/12/17 at 10:00 Acetaminophen/ Hydrocodone Bitart (Lortab 5/325) 1 tab PRN Q4HRS PRN PO MILD PAIN; Start 02/12/17 at 10:00 Hydromorphone HCl (Dilaudid) 0.5 mg PRN Q3HRS PRN IV PAIN Last administered on 02/12/17 12:52; Start 02/12/17 at 10:00 Docusate Sodium (Colace) 100 mg BID PO ; Start 02/12/17 at 10:00 Ondansetron HCl (Zofran) 4 mg PRN Q6HRS PRN IV NAUESA, 1ST CHOICE; Start 02/12 at 10:00 Ondansetron HCl (Zofran) 4 mg PRN Q6HRS PRN IV NAUSEA/VOMITING; Start at 10:00; Stop 02/12/17 at 18:00 Fentanyl Citrate (Fentanyl 2ml Vial) 25 mcg PRN Q5MIN PRN IV MILD PAIN; Start 02/12/17 at 10:00; Stop 02/12/17 at 18:00 Fentanyl Citrate (Fentanyl 2ml Vial) 50 mcg PRN Q5MIN PRN IV MODERATE PAIN Last administered on 02/12/17 10:42; Start 02/12/17 at 10:00; Stop 02/12/17 at 18:00 Morphine Sulfate 1 mg PRN Q10MIN PRN IV SEVERE PAIN; Start 02/12/17 at 10:00; Stop 02/12/17 at 18:00 Ringer's Solution 1,000 ml @ 30 mls/hr Q24H IV ; Start 02/12/17 at 10:00; Stop 02/12/17 at 21:59 Lidocaine HCl (Xylocaine-Mpf 1% Vial) 2 ml 1X PRN PRN ID IV START; Start 02/12 at 10:00; Stop 02/12/17 at 18:00 Hydromorphone HCl (Dilaudid) 0.5 mg PRN Q10MIN PRN IV SEV PAIN, Second choice; Start 02/12/17 at 10:00; Stop 02/12/17 at 18:00 Prochlorperazine Edisylate (Compazine) 5 mg PACU PRN PRN IV NAUSEA, MRX1 Last administered on 02/12/17t 10:00; Start 02/12/17 at 10:00; Stop 02/12/17 at 18 :00 Potassium Chloride (Klor-Con) 40 meq 1X ONCE PO ; Start 02/12/17 at 10:30; Stop 02/12/17 at 10:31; Status DC Albuterol Sulfate (Ventolin Neb Soln) 2.5 mg 1X STAT NEB ; Start 02/12/17 at 11:18; Stop 02/12/17 at 11:20; Status DC Active Scripts Active Tylenol (Acetaminophen) 325 Mg Tablet 650 Mg PO PRN Q6HRS PRN Eliquis (Apixaban) 5 Mg Tablet 5 Mg PO BID Reported Metoprolol Tartrate 25 Mg Tablet Prilosec (Omeprazole) 40 Mg Capsule. 1 Cap PO DAILY Vitals/I & O Vital Sign - Last 24 Hours 02/11/17 02/11/17 02/11/17 02/11/17 15:08 15:54 18:00 19:00 Temp 99.0 99.0 97.7 97.9 99.0 99.0 97.7 97.9 Pulse 96 74 93 113 Resp 16 16 16 18 B/P (MAP) 89/42 (58) 101/41 (61) 105/41 (62) 95/62 (73) Pulse Ox 95 96 94 93 O2 Delivery Nasal Cannula Nasal Cannula Nasal Cannula Nasal Cannula O2 Flow Rate 2.0 2.0 2.0 2.0 02/11/17 02/11/17 02/11/17 02/11/17 20:00 21:14 22:00 23:00 Temp 99.8 99.8 Pulse 110 Resp 18 B/P (MAP) 94/48 (63) 98/47 (64) 96/58 (71) Pulse Ox 96 O2 Delivery Nasal Cannula Nasal Cannula O2 Flow Rate 2.0 2.0 02/12/17 02/12/17 02/12/17 02/12/17 00:41 01:11 03:00 06:00 Temp 99.2 99.2 99.2 99.2 Pulse 99 99 Resp 16 16 18 B/P (MAP) 113/64 (80) 113/64 (80) Pulse Ox 96 96 91 91 O2 Delivery Nasal Cannula Nasal Cannula Nasal Cannula Nasal Cannula O2 Flow Rate 2.0 2.0 2.0 2.0 02/12/17 02/12/17 02/12/17 02/12/17 06:00 07:00 07:07 07:30 Temp 97.9 97.9 Pulse 94 96 94 B/P (MAP) 121/47 (71) 124/55 (78) 121/47 Pulse Ox 92 O2 Delivery Nasal Cannula Nasal Cannula O2 Flow Rate 2.0 2.0 02/12/17 02/12/17 02/12/17 02/12/17 09:32 09:32 09:47 10:00 Temp 97.0 97.0 Pulse 86 78 Resp 16 14 18 B/P (MAP) 100/51 91/38 Pulse Ox 92 90 O2 Delivery Mask Simple Mask Simple Mask O2 Flow Rate 10 10 10 02/12/17 02/12/17 02/12/17 02/12/17 10:02 10:17 10:32 10:42 Temp 97.2 97.2 Pulse 75 77 78 Resp 18 18 18 18 B/P (MAP) 100/51 98/46 101/47 Pulse Ox 91 93 90 O2 Delivery Simple Mask Simple Mask Simple Mask O2 Flow Rate 10 10 10 02/12/17 02/12/17 02/12/17 11:00 11:47 12:52 Temp 97.9 97.9 Pulse 78 Resp 16 B/P (MAP) 102/43 (62) Pulse Ox 87 94 O2 Delivery Nasal Cannula Nasal Cannula Nasal Cannula O2 Flow Rate 4.0 4.0 4.0 Intake and Output 02/11/17 02/11/17 02/12/17 14:59 22:59 06:59 Intake Total 900 ml 120 ml Output Total 1850 ml 200 ml Balance -950 ml -80 ml CURT WREN III DO Feb 12, 2017 14:28
[2017-02-12] MEDS: HYDROcodone/APAP 5/325MG 1 TAB TABLET PO PRN (20:08)
--- NOTE | 2017-02-12 21:01 | PDOC2 ---
CARDIOLOGY CONSULT NOTE CHEIF COMPLAINT: Cardiac optimization Problems: HPI: Pleasant 86 yo woman presenting for cholecystitis. Underwent successful lap russell. Cardiology asked to comment on her cardiac issues. Patient denies any chest pain, orthopnea or PND. NO edema or palpitations/syncope. No other issues to report, she has excellent functional capacity, still mows her yard. PMHX: Tachybrady s/p dual chamber pacer HTN DLP PAF on anticoagulation with eliquis. SOCHX: No alcohol, tob or illicits. FAMHX: NC CURRENT MEDS: Current Medications Medications (Trade) Dose Ordered Sig/Adam Start Time Stop Time Status Last Admin Dose Admin Acetaminophen (Tylenol) 650 mg PRN Q6HRS PRN 02/11/17 11:45 02/12/17 00:25 650 MG Acetaminophen/ Hydrocodone Bitart (Lortab 5/325) 1 tab PRN Q4HRS PRN 02/12/17 10:00 02/12/17 20:08 1 TAB Albuterol Sulfate (Ventolin Neb Soln) 2.5 mg 1X STAT 02/12/17 11:18 02/12/17 11:20 DC Bupivacaine HCl/ Epinephrine Bitart (Sensorcain-Mpf Epi 0.5%-1:[id number]) 30 ml STK-MED ONCE 02/12/17 08:28 02/12/17 09:02 DC 02/12/17 08:28 4 ML Cellulose 1 each STK-MED ONCE 02/12/17 08:28 02/12/17 09:02 DC 02/12/17 08:28 1 EACH Dextrose (Dextrose 50%-Water Syringe) 12.5 gm PRN Q15MIN PRN 02/12/17 10:00 Diphenhydramine HCl (Benadryl) 25 mg PRN Q6HRS PRN 02/12/17 10:00 Docusate Sodium (Colace) 100 mg BID 02/12/17 10:00 02/12/17 20:07 100 MG Famotidine (Pepcid Vial) 20 mg BID 02/11/17 11:00 02/12/17 20:06 20 MG Fentanyl Citrate (Fentanyl 2ml Vial) 50 mcg PRN Q5MIN PRN 02/12/17 10:00 02/12/17 18:00 DC 02/12/17 10:42 50 MCG Hydromorphone HCl (Dilaudid) 0.5 mg PRN Q10MIN PRN 02/12/17 10:00 02/12/17 18:00 DC Info (Do NOT chart on this entry -- for MONITORING) 1 each PRN DAILY PRN 02/10/17 01:15 02/12/17 01:14 DC Iohexol (Omnipaque 300 Mg/ml) 50 ml STK-MED ONCE 02/12/17 08:28 02/12/17 09:02 DC 02/12/17 08:28 10 ML Lactobacillus Rhamnosus (Culturelle) 1 cap BID 02/10/17 21:00 02/12/17 20:06 1 CAP Lidocaine HCl (Xylocaine-Mpf 1% Vial) 2 ml 1X PRN PRN 02/12/17 10:00 02/12/17 18:00 DC Metoprolol Tartrate (Lopressor) 25 mg DAILY 02/11/17 12:00 Morphine Sulfate 1 mg PRN Q10MIN PRN 02/12/17 10:00 02/12/17 18:00 DC Ondansetron HCl (Zofran) 4 mg PRN Q6HRS PRN 02/12/17 10:00 02/12/17 18:00 DC Pantoprazole Sodium (Protonix) 40 mg DAILYAC 02/11/17 11:30 02/12/17 13:54 DC Piperacillin Sod/ Tazobactam Sod (Zosyn) 2.25 gm Q6HRS 02/10/17 06:00 02/12/17 18:00 2.25 GM Piperacillin Sod/ Tazobactam Sod 3.375 gm/Dextrose 50 ml @ 100 mls/hr Q6HRS 02/10/17 06:00 UNV Potassium Chloride/Dextrose/ Sod Cl 1,000 ml @ 125 mls/hr 1X ONCE 02/10/17 03:00 02/10/17 10:59 DC 02/10/17 03:02 125 MLS/HR Potassium Chloride (Klor-Con) 40 meq 1X ONCE 02/12/17 10:30 02/12/17 10:31 DC 02/12/17 10:30 40 MEQ Prochlorperazine Edisylate (Compazine) 5 mg PACU PRN PRN 02/12/17 10:00 02/12/17 18:00 DC 02/12/17 10:00 5 MG Ringer's Solution 1,000 ml @ 30 mls/hr Q24H 02/12/17 10:00 02/12/17 21:59 Sodium Chloride (Normal Saline Flush) 3 ml QSHIFT PRN 02/12/17 10:00 ALLERGIES: Allergies Coded Allergies Type Severity Reaction Last Updated Verified Sulfa (Sulfonamide Antibiotics) Allergy Intermediate 09/26/14 No ROS: Negative for 12/31 systems reviewed unless otherwise noted above in HPI . PHYSICAL EXAM: Vital Signs: Vital Signs Date Time Temp Pulse Resp B/P (MAP) Pulse Ox O2 Delivery O2 Flow Rate FiO2 02/12/17 20:08 16 91 02/12/17 19:00 97.9 81 102/49 (66) Nasal Cannula 3.0 97.9 I & O Intake and Output 02/12/17 07:00 Intake Total 1020 ml Output Total 2050 ml Balance -1030 ml Intake Oral 1020 ml Output Urine Total 2050 ml # Voids 1 Physical Exam: Gen: A/O x 3. nAD rrr, no m/r/g ctab soft,mildly tender abd no edema. non focal neuro exam. DIAGNOSTIC TESTING: EKG - sinus tachycardia. Significant anemia noted from recent surgery Lab Laboratory Tests Test 02/12/17 05:40 White Blood Count 10.8 x10^3/uL (4.0-11.0) Red Blood Count 3.31 x10^6/uL (3.50-5.40) L Hemoglobin 10.5 g/dL (12.0-15.5) L Hematocrit 31.6 % (36.0-47.0) L Mean Corpuscular Volume 95 fL (79-100) Mean Corpuscular Hemoglobin 32 pg (25-35) Mean Corpuscular Hemoglobin Concent 33 g/dL (31-37) Red Cell Distribution Width 13.0 % (11.5-14.5) Platelet Count 185 x10^3/uL (140-400) Neutrophils (%) (Auto) 81 % (31-73) H Lymphocytes (%) (Auto) 8 % (24-48) L Monocytes (%) (Auto) 10 % (0-9) H Eosinophils (%) (Auto) 1 % (0-3) Basophils (%) (Auto) 0 % (0-3) Neutrophils # (Auto) 8.7 x10^3uL (1.8-7.7) H Lymphocytes # (Auto) 0.9 x10^3/uL (1.0-4.8) L Monocytes # (Auto) 1.1 x10^3/uL (0.0-1.1) Eosinophils # (Auto) 0.1 x10^3/uL (0.0-0.7) Basophils # (Auto) 0.0 x10^3/uL (0.0-0.2) Sodium Level 139 mmol/L (136-145) Potassium Level 3.3 mmol/L (3.5-5.1) L Chloride Level 106 mmol/L (98-107) Carbon Dioxide Level 28 mmol/L (21-32) Anion Gap 5 (6-14) L Blood Urea Nitrogen 8 mg/dL (7-20) Creatinine 0.7 mg/dL (0.6-1.0) Estimated GFR (Cockcroft-Gault) 79.0 Glucose Level 101 mg/dL (70-99) H Calcium Level 7.7 mg/dL (8.5-10.1) L ASSESSMENT: 1. Acute cholecystitis s/p surgical intervention 2. PAF 3. SSS s/p dual chamber pacer PLAN: 1. Doing well post op. no acute cardiac concerns. 2. Supportive care, ok to restart eliquis when cleared by surgery. 3. She will f/u with her primary globe cleaner through [facility]. Pls call with any questions. TOÑO SIMPSON MD Feb 12, 2017 21:01
[2017-02-12] MEDS ORDERED: CALCIUM CARBONATE 500 MG TAB.CHEW PO PRN (23:00)
[2017-02-13 03:00] VITALS: BP 109/60
[2017-02-13] MEDS: IV NORMAL SALINE 1000ML BAG 1,000 ML IV SCH ×2 (03:07→22:39)
[2017-02-13 05:51] LABS: CREATININE 0.6 mg/dL (0.6-1.0); GFR 94.3; POTASSIUM 3.6 mmol/L (3.5-5.1)
[2017-02-13] MEDS: HYDROcodone/APAP 5/325MG 1 TAB TABLET PO PRN (06:37)
[2017-02-13] MEDS: PIPERACILLIN/TAZO IV Push 2.25 GM VIAL. IVP SCH ×4 (06:38→22:34)
[2017-02-13 07:00] VITALS: BP 127/71
[2017-02-13 08:07] LABS: BASO % 0 % (0-3); EOS % 2 % (0-3); HEMATOCRIT 31.7 % (36.0-47.0); HEMOGLOBIN 10.5 g/dL (12.0-15.5); LYMPH # 0.6 x10^3/uL (1.0-4.8); LYMPH % 5 % (24-48); MEAN CORPUSCULAR HEMOGLOBIN 32 pg (25-35); MEAN CORPUSCULAR HGB CONC 33 g/dL (31-37); MEAN CORPUSCULAR VOLUME 97 fL (79-100); MONO % 6 % (0-9); NEUT % 88 % (31-73); PLATELET COUNT 248 x10^3/uL (140-400); RED BLOOD COUNT 3.27 x10^6/uL (3.50-5.40); RED CELL DISTRIBUTION WIDTH 13.4 % (11.5-14.5); WHITE BLOOD COUNT 12.9 x10^3/uL (4.0-11.0)
[2017-02-13 09:11] LABS: % EOS 1 % (0-5); PLT ESTIMATE ADEQUATE (ADEQUATE)
--- NOTE | 2017-02-13 09:38 | PDOC ---
SURGICAL PROGRESS NOTE Subjective tolerating diet pain at right side Vital Signs Vital Signs Date Time Temp Pulse Resp B/P (MAP) Pulse Ox O2 Delivery O2 Flow Rate FiO2 02/13/17 07:00 97.7 72 18 127/71 (89) 94 Nasal Cannula 3.0 97.7 I&O Intake and Output 02/13/17 07:00 Intake Total 3015 ml Output Total 180 ml Balance 2835 ml Intake Oral 2040 ml IV Total 975 ml Drainage Total 180 ml # Voids 6 General: Alert, Oriented X3, Cooperative, No acute distress Abdomen: Soft Extremities: Other (dressings dry, sravan in place--not holding suctions) Labs Laboratory Tests Test 02/11/17 15:08 02/12/17 05:40 02/13/17 04:30 Lactic Acid Level 1.2 mmol/L (0.4-2.0) White Blood Count 10.8 x10^3/uL (4.0-11.0) 12.9 x10^3/uL (4.0-11.0) Red Blood Count 3.31 x10^6/uL (3.50-5.40) 3.27 x10^6/uL (3.50-5.40) Hemoglobin 10.5 g/dL (12.0-15.5) 10.5 g/dL (12.0-15.5) Hematocrit 31.6 % (36.0-47.0) 31.7 % (36.0-47.0) Mean Corpuscular Volume 95 fL (79-100) 97 fL (79-100) Mean Corpuscular Hemoglobin 32 pg (25-35) 32 pg (25-35) Mean Corpuscular Hemoglobin Concent 33 g/dL (31-37) 33 g/dL (31-37) Red Cell Distribution Width 13.0 % (11.5-14.5) 13.4 % (11.5-14.5) Platelet Count 185 x10^3/uL (140-400) 248 x10^3/uL (140-400) Neutrophils (%) (Auto) 81 % (31-73) 88 % (31-73) Lymphocytes (%) (Auto) 8 % (24-48) 5 % (24-48) Monocytes (%) (Auto) 10 % (0-9) 6 % (0-9) Eosinophils (%) (Auto) 1 % (0-3) 2 % (0-3) Basophils (%) (Auto) 0 % (0-3) 0 % (0-3) Neutrophils # (Auto) 8.7 x10^3uL (1.8-7.7) 11.3 x10^3uL (1.8-7.7) Lymphocytes # (Auto) 0.9 x10^3/uL (1.0-4.8) 0.6 x10^3/uL (1.0-4.8) Monocytes # (Auto) 1.1 x10^3/uL (0.0-1.1) 0.7 x10^3/uL (0.0-1.1) Eosinophils # (Auto) 0.1 x10^3/uL (0.0-0.7) 0.2 x10^3/uL (0.0-0.7) Basophils # (Auto) 0.0 x10^3/uL (0.0-0.2) 0.0 x10^3/uL (0.0-0.2) Sodium Level 139 mmol/L (136-145) 136 mmol/L (136-145) Potassium Level 3.3 mmol/L (3.5-5.1) 3.6 mmol/L (3.5-5.1) Chloride Level 106 mmol/L (98-107) 103 mmol/L (98-107) Carbon Dioxide Level 28 mmol/L (21-32) 23 mmol/L (21-32) Anion Gap 5 (6-14) 10 (6-14) Blood Urea Nitrogen 8 mg/dL (7-20) 11 mg/dL (7-20) Creatinine 0.7 mg/dL (0.6-1.0) 0.6 mg/dL (0.6-1.0) Estimated GFR (Cockcroft-Gault) 79.0 94.3 Glucose Level 101 mg/dL (70-99) 167 mg/dL (70-99) Calcium Level 7.7 mg/dL (8.5-10.1) 8.0 mg/dL (8.5-10.1) Segmented Neutrophils % 82 % (35-66) Lymphocytes % 8 % (24-48) Monocytes % 9 % (0-10) Eosinophils % 1 % (0-5) Platelet Estimate Adequate (ADEQUATE) Laboratory Tests Test 02/13/17 04:30 White Blood Count 12.9 x10^3/uL (4.0-11.0) Red Blood Count 3.27 x10^6/uL (3.50-5.40) Hemoglobin 10.5 g/dL (12.0-15.5) Hematocrit 31.7 % (36.0-47.0) Mean Corpuscular Volume 97 fL (79-100) Mean Corpuscular Hemoglobin 32 pg (25-35) Mean Corpuscular Hemoglobin Concent 33 g/dL (31-37) Red Cell Distribution Width 13.4 % (11.5-14.5) Platelet Count 248 x10^3/uL (140-400) Neutrophils (%) (Auto) 88 % (31-73) Lymphocytes (%) (Auto) 5 % (24-48) Monocytes (%) (Auto) 6 % (0-9) Eosinophils (%) (Auto) 2 % (0-3) Basophils (%) (Auto) 0 % (0-3) Neutrophils # (Auto) 11.3 x10^3uL (1.8-7.7) Lymphocytes # (Auto) 0.6 x10^3/uL (1.0-4.8) Monocytes # (Auto) 0.7 x10^3/uL (0.0-1.1) Eosinophils # (Auto) 0.2 x10^3/uL (0.0-0.7) Basophils # (Auto) 0.0 x10^3/uL (0.0-0.2) Segmented Neutrophils % 82 % (35-66) Lymphocytes % 8 % (24-48) Monocytes % 9 % (0-10) Eosinophils % 1 % (0-5) Platelet Estimate Adequate (ADEQUATE) Sodium Level 136 mmol/L (136-145) Potassium Level 3.6 mmol/L (3.5-5.1) Chloride Level 103 mmol/L (98-107) Carbon Dioxide Level 23 mmol/L (21-32) Anion Gap 10 (6-14) Blood Urea Nitrogen 11 mg/dL (7-20) Creatinine 0.6 mg/dL (0.6-1.0) Estimated GFR (Cockcroft-Gault) 94.3 Glucose Level 167 mg/dL (70-99) Calcium Level 8.0 mg/dL (8.5-10.1) Problem List Problems Medical Problems: (1) Abdominal pain Status: Acute (2) Acute cholecystitis due to biliary calculus Status: Acute (3) Current use of anticoagulant therapy Status: Acute (4) Nausea & vomiting Status: Acute Assessment/Plan s/p lap russell, cholecystitis continue abx drain not holding suction--will leave for now and d/w Dr Berry Problems: MANE YEBOAH QUILL FIXER Feb 13, 2017 09:38
[2017-02-13] MEDS: LACTOBACILLUS RHAMNOSUS GG 1 CAPSULE. PO SCH ×2 (10:00→20:39)
[2017-02-13] MEDS: DOCUSATE SODIUM 100 MG CAPSULE. PO SCH ×2 (10:01→20:39)
[2017-02-13] MEDS: FAMOTIDINE 20 MG/2 ML VIAL IVP SCH (10:01)
[2017-02-13] MEDS: METOPROLOL TART IMMED RELEASE 25 MG TABLET. PO SCH (10:01)
--- NOTE | 2017-02-13 11:35 | PDOC ---
Subjective: Subjective: Incisional/drain pain improved w/ meds. Eating more and passing gas. Likes the food. Objective: Objective: Drain not holding suction. Vital Signs: Vital Signs Date Time Temp Pulse Resp B/P (MAP) Pulse Ox O2 Delivery O2 Flow Rate FiO2 02/13/17 10:15 Nasal Cannula 3.0 02/13/17 10:01 72 127/71 02/13/17 07:37 16 02/13/17 07:00 97.7 94 97.7 Labs: Laboratory Tests Test 02/13/17 04:30 White Blood Count 12.9 x10^3/uL Red Blood Count 3.27 x10^6/uL Hemoglobin 10.5 g/dL Hematocrit 31.7 % Mean Corpuscular Volume 97 fL Mean Corpuscular Hemoglobin 32 pg Mean Corpuscular Hemoglobin Concent 33 g/dL Red Cell Distribution Width 13.4 % Platelet Count 248 x10^3/uL Neutrophils (%) (Auto) 88 % Lymphocytes (%) (Auto) 5 % Monocytes (%) (Auto) 6 % Eosinophils (%) (Auto) 2 % Basophils (%) (Auto) 0 % Neutrophils # (Auto) 11.3 x10^3uL Lymphocytes # (Auto) 0.6 x10^3/uL Monocytes # (Auto) 0.7 x10^3/uL Eosinophils # (Auto) 0.2 x10^3/uL Basophils # (Auto) 0.0 x10^3/uL Segmented Neutrophils % 82 % Lymphocytes % 8 % Monocytes % 9 % Eosinophils % 1 % Platelet Estimate Adequate Sodium Level 136 mmol/L Potassium Level 3.6 mmol/L Chloride Level 103 mmol/L Carbon Dioxide Level 23 mmol/L Anion Gap 10 Blood Urea Nitrogen 11 mg/dL Creatinine 0.6 mg/dL Estimated GFR (Cockcroft-Gault) 94.3 Glucose Level 167 mg/dL Calcium Level 8.0 mg/dL PE: GEN: NAD LUNGS: CTAB HEART: RRR ABD: soft, minimal drain output NEURO/PSYCH: A & O 3 A/P: S/p cholecystectomy -- Stop IV H2 H2 joan, change to PO PPI. Continue per surgery. TORI FRAUSTO Feb 13, 2017 11:35
[2017-02-13 11:40] VITALS: BP 120/70
--- NOTE | 2017-02-13 12:35 | PDOC ---
PROGRESS NOTES Chief Complaint Chief Complaint Acute Cholecystitis Abd Pain History of Present Illness History of Present Illness Pt Seen at Bedside, AAOx3, NAD, Eating Well SP Day 1, Cholecystectomy Incision CDI Abd Tender to Palpation DW- HEALTH SERVICES DIRECTOR checking EZE drain Vitals Vitals Vital Signs Date Time Temp Pulse Resp B/P (MAP) Pulse Ox O2 Delivery O2 Flow Rate FiO2 02/13/17 11:40 97.7 79 18 120/70 (87) 94 Nasal Cannula 3.0 97.7 Physical Exam General: Alert, Oriented X3, Cooperative, No acute distress Heart: Regular rate, Normal S1, Normal S2, No murmurs Lungs: Clear, Other (No RRW) Abdomen: Soft Extremities: Other (Tender to Palpation) Skin: No rashes Labs LABS Laboratory Tests Test 02/13/17 04:30 White Blood Count 12.9 x10^3/uL (4.0-11.0) Red Blood Count 3.27 x10^6/uL (3.50-5.40) Hemoglobin 10.5 g/dL (12.0-15.5) Hematocrit 31.7 % (36.0-47.0) Mean Corpuscular Volume 97 fL (79-100) Mean Corpuscular Hemoglobin 32 pg (25-35) Mean Corpuscular Hemoglobin Concent 33 g/dL (31-37) Red Cell Distribution Width 13.4 % (11.5-14.5) Platelet Count 248 x10^3/uL (140-400) Neutrophils (%) (Auto) 88 % (31-73) Lymphocytes (%) (Auto) 5 % (24-48) Monocytes (%) (Auto) 6 % (0-9) Eosinophils (%) (Auto) 2 % (0-3) Basophils (%) (Auto) 0 % (0-3) Neutrophils # (Auto) 11.3 x10^3uL (1.8-7.7) Lymphocytes # (Auto) 0.6 x10^3/uL (1.0-4.8) Monocytes # (Auto) 0.7 x10^3/uL (0.0-1.1) Eosinophils # (Auto) 0.2 x10^3/uL (0.0-0.7) Basophils # (Auto) 0.0 x10^3/uL (0.0-0.2) Segmented Neutrophils % 82 % (35-66) Lymphocytes % 8 % (24-48) Monocytes % 9 % (0-10) Eosinophils % 1 % (0-5) Platelet Estimate Adequate (ADEQUATE) Sodium Level 136 mmol/L (136-145) Potassium Level 3.6 mmol/L (3.5-5.1) Chloride Level 103 mmol/L (98-107) Carbon Dioxide Level 23 mmol/L (21-32) Anion Gap 10 (6-14) Blood Urea Nitrogen 11 mg/dL (7-20) Creatinine 0.6 mg/dL (0.6-1.0) Estimated GFR (Cockcroft-Gault) 94.3 Glucose Level 167 mg/dL (70-99) Calcium Level 8.0 mg/dL (8.5-10.1) Review of Systems Review of Systems General: Admits hunger, No Fever, Fatigue CV: No Chest Pain, Palpitations Assessment and Plan Assessmemt and Plan Assessment: Abdominal pain Acute cholecystitis due to biliary calculus Current use of anticoagulant therapy Nausea & vomiting Plan: Continue Wound Care Continue GI Diet Continue Cardiac Monitoring Continue PT/OT Recheck Labs DC- SNU if bed available- probable Problems: Comment Review of Relevant I have reviewed the following items elise (where applicable) has been applied. Labs Laboratory Tests Test 02/11/17 15:08 02/12/17 05:40 02/13/17 04:30 Lactic Acid Level 1.2 mmol/L (0.4-2.0) White Blood Count 10.8 x10^3/uL (4.0-11.0) 12.9 x10^3/uL (4.0-11.0) Red Blood Count 3.31 x10^6/uL (3.50-5.40) 3.27 x10^6/uL (3.50-5.40) Hemoglobin 10.5 g/dL (12.0-15.5) 10.5 g/dL (12.0-15.5) Hematocrit 31.6 % (36.0-47.0) 31.7 % (36.0-47.0) Mean Corpuscular Volume 95 fL (79-100) 97 fL (79-100) Mean Corpuscular Hemoglobin 32 pg (25-35) 32 pg (25-35) Mean Corpuscular Hemoglobin Concent 33 g/dL (31-37) 33 g/dL (31-37) Red Cell Distribution Width 13.0 % (11.5-14.5) 13.4 % (11.5-14.5) Platelet Count 185 x10^3/uL (140-400) 248 x10^3/uL (140-400) Neutrophils (%) (Auto) 81 % (31-73) 88 % (31-73) Lymphocytes (%) (Auto) 8 % (24-48) 5 % (24-48) Monocytes (%) (Auto) 10 % (0-9) 6 % (0-9) Eosinophils (%) (Auto) 1 % (0-3) 2 % (0-3) Basophils (%) (Auto) 0 % (0-3) 0 % (0-3) Neutrophils # (Auto) 8.7 x10^3uL (1.8-7.7) 11.3 x10^3uL (1.8-7.7) Lymphocytes # (Auto) 0.9 x10^3/uL (1.0-4.8) 0.6 x10^3/uL (1.0-4.8) Monocytes # (Auto) 1.1 x10^3/uL (0.0-1.1) 0.7 x10^3/uL (0.0-1.1) Eosinophils # (Auto) 0.1 x10^3/uL (0.0-0.7) 0.2 x10^3/uL (0.0-0.7) Basophils # (Auto) 0.0 x10^3/uL (0.0-0.2) 0.0 x10^3/uL (0.0-0.2) Sodium Level 139 mmol/L (136-145) 136 mmol/L (136-145) Potassium Level 3.3 mmol/L (3.5-5.1) 3.6 mmol/L (3.5-5.1) Chloride Level 106 mmol/L (98-107) 103 mmol/L (98-107) Carbon Dioxide Level 28 mmol/L (21-32) 23 mmol/L (21-32) Anion Gap 5 (6-14) 10 (6-14) Blood Urea Nitrogen 8 mg/dL (7-20) 11 mg/dL (7-20) Creatinine 0.7 mg/dL (0.6-1.0) 0.6 mg/dL (0.6-1.0) Estimated GFR (Cockcroft-Gault) 79.0 94.3 Glucose Level 101 mg/dL (70-99) 167 mg/dL (70-99) Calcium Level 7.7 mg/dL (8.5-10.1) 8.0 mg/dL (8.5-10.1) Segmented Neutrophils % 82 % (35-66) Lymphocytes % 8 % (24-48) Monocytes % 9 % (0-10) Eosinophils % 1 % (0-5) Platelet Estimate Adequate (ADEQUATE) Laboratory Tests Test 02/13/17 04:30 White Blood Count 12.9 x10^3/uL (4.0-11.0) Red Blood Count 3.27 x10^6/uL (3.50-5.40) Hemoglobin 10.5 g/dL (12.0-15.5) Hematocrit 31.7 % (36.0-47.0) Mean Corpuscular Volume 97 fL (79-100) Mean Corpuscular Hemoglobin 32 pg (25-35) Mean Corpuscular Hemoglobin Concent 33 g/dL (31-37) Red Cell Distribution Width 13.4 % (11.5-14.5) Platelet Count 248 x10^3/uL (140-400) Neutrophils (%) (Auto) 88 % (31-73) Lymphocytes (%) (Auto) 5 % (24-48) Monocytes (%) (Auto) 6 % (0-9) Eosinophils (%) (Auto) 2 % (0-3) Basophils (%) (Auto) 0 % (0-3) Neutrophils # (Auto) 11.3 x10^3uL (1.8-7.7) Lymphocytes # (Auto) 0.6 x10^3/uL (1.0-4.8) Monocytes # (Auto) 0.7 x10^3/uL (0.0-1.1) Eosinophils # (Auto) 0.2 x10^3/uL (0.0-0.7) Basophils # (Auto) 0.0 x10^3/uL (0.0-0.2) Segmented Neutrophils % 82 % (35-66) Lymphocytes % 8 % (24-48) Monocytes % 9 % (0-10) Eosinophils % 1 % (0-5) Platelet Estimate Adequate (ADEQUATE) Sodium Level 136 mmol/L (136-145) Potassium Level 3.6 mmol/L (3.5-5.1) Chloride Level 103 mmol/L (98-107) Carbon Dioxide Level 23 mmol/L (21-32) Anion Gap 10 (6-14) Blood Urea Nitrogen 11 mg/dL (7-20) Creatinine 0.6 mg/dL (0.6-1.0) Estimated GFR (Cockcroft-Gault) 94.3 Glucose Level 167 mg/dL (70-99) Calcium Level 8.0 mg/dL (8.5-10.1) Microbiology 02/11/17 Blood Culture - Preliminary, Resulted NO GROWTH AFTER 1 DAY 02/10/17 Urine Culture - Final, Complete 02/10/17 Urine Culture Result 1 (LEILA) - Final, Complete Medications Current Medications Fentanyl Citrate (Fentanyl 2ml Vial) 50 mcg PRN Q15MIN PRN IV PAIN GREATER THAN 3/10 Last administered on 02/10/17 09:47; Start 02/10/17 at 00:15; Stop 02/10/17 at 12:53; Status DC Sodium Chloride 1,000 ml @ 1,000 mls/hr Q1H IV Last administered on 00:30; Start 02/10/17 at 00:30; Stop 02/10/17 at 01:29; Status DC Ondansetron HCl (Zofran) 4 mg 1X ONCE IV Last administered on 02/10/17 00:32 ; Start 02/10/17 at 00:30; Stop 02/10/17 at 00:31; Status DC Iohexol (Omnipaque 300 Mg/ml) 60 ml 1X ONCE IV Last administered on 01:29; Start 02/10/17 at 01:30; Stop 02/10/17 at 01:31; Status DC Info (Do NOT chart on this entry -- for MONITORING) 1 each PRN DAILY PRN MC SEE COMMENTS; Start 02/10/17 at 01:15; Stop 02/12/17 at 01:14; Status DC Piperacillin Sod/ Tazobactam Sod 3.375 gm/Dextrose 50 ml @ 100 mls/hr Q6HRS IV ; Start 02/10/17 at 06:00; Status UNV Ondansetron HCl (Zofran) 4 mg PRN Q8HRS PRN IV NAUSEA/VOMITING; Start at 02:30; Stop 02/11/17 at 02:29; Status DC Morphine Sulfate 2 mg PRN Q2HR PRN IV SEVERE PAIN; Start 02/10/17 at 02:30; Stop 02/11/17 at 02:29; Status DC Fentanyl Citrate (Fentanyl 2ml Vial) 50 mcg PRN Q1HR PRN IV SEVERE PAIN Last administered on 02/10/17 23:59; Start 02/10/17 at 02:30; Stop 02/11/17 at 02 :29; Status DC Piperacillin Sod/ Tazobactam Sod (Zosyn) 3.375 gm 1X ONCE IVP Last administered on 02/10/17 02:41; Start 02/10/17 at 03:00; Stop 02/10/17 at 03 :01; Status DC Potassium Chloride/Dextrose/ Sod Cl 1,000 ml @ 125 mls/hr 1X ONCE IV Last administered on 02/10/17 03:02; Start 02/10/17 at 03:00; Stop 02/10/17 at 10 :59; Status DC Piperacillin Sod/ Tazobactam Sod (Zosyn) 2.25 gm Q6HRS IVP Last administered on 02/13/17 06:38; Start 02/10/17 at 06:00 Lactobacillus Rhamnosus (Culturelle) 1 cap BID PO Last administered on 10:00; Start 02/10/17 at 21:00 Fentanyl Citrate (Fentanyl 2ml Vial) 50 mcg PRN Q2HR PRN IV SEVERE PAIN Last administered on 02/12/17 00:41; Start 02/11/17 at 06:30 Famotidine (Pepcid Vial) 20 mg BID IVP Last administered on 02/13/17 10:01; Start 02/11/17 at 11:00; Stop 02/13/17 at 11:36; Status DC Sodium Chloride 1,000 ml @ 50 mls/hr Q20H IV Last administered on 02/13/17 03:07; Start 02/11/17 at 11:45 Acetaminophen (Tylenol) 650 mg PRN Q6HRS PRN PO MILD PAIN / TEMP Last administered on 02/12/17 00:25; Start 02/11/17 at 11:45 Metoprolol Tartrate (Lopressor) 25 mg DAILY PO Last administered on 02/13/17 10:01; Start 02/11/17 at 12:00 Pantoprazole Sodium (Protonix) 40 mg DAILYAC PO ; Start 02/11/17 at 11:30; Stop 02/12/17 at 13:54; Status DC Ondansetron HCl (Zofran) 4 mg PRN Q8HRS PRN IV NAUSEA/VOMITING; Start at 16:45; Stop 02/12/17 at 13:53; Status DC Bupivacaine HCl/ Epinephrine Bitart (Sensorcain-Mpf Epi 0.5%-1:[id number]) 30 ml STK -MED ONCE INJ Last administered on 02/12/17 08:28; Start 02/12/17 at 08:28; Stop 02/12/17 at 09:02; Status DC Iohexol (Omnipaque 300 Mg/ml) 50 ml STK-MED ONCE IV Last administered on 08:28; Start 02/12/17 at 08:28; Stop 02/12/17 at 09:02; Status DC Cellulose 1 each STK-MED ONCE TP Last administered on 02/12/17 08:28; Start 02/12/17 at 08:28; Stop 02/12/17 at 09:02; Status DC Diphenhydramine HCl (Benadryl) 25 mg PRN Q6HRS PRN PO ITCHING; Start 02/12/17 at 10:00 Diphenhydramine HCl (Benadryl) 25 mg PRN Q6HRS PRN IV ITCHING; Start 02/12/17 at 10:00 Sodium Chloride (Normal Saline Flush) 3 ml QSHIFT PRN IV AFTER MEDS AND BLOOD DRAWS; Start 02/12/17 at 10:00 Dextrose (Dextrose 50%-Water Syringe) 12.5 gm PRN Q15MIN PRN IV SEE COMMENTS; Start 02/12/17 at 10:00 Acetaminophen/ Hydrocodone Bitart (Lortab 5/325) 1 tab PRN Q4HRS PRN PO MILD PAIN Last administered on 02/13/17 06:37; Start 02/12/17 at 10:00 Hydromorphone HCl (Dilaudid) 0.5 mg PRN Q3HRS PRN IV PAIN Last administered on 02/12/17 15:46; Start 02/12/17 at 10:00 Docusate Sodium (Colace) 100 mg BID PO Last administered on 02/13/17 10:01; Start 02/12/17 at 10:00 Ondansetron HCl (Zofran) 4 mg PRN Q6HRS PRN IV NAUESA, 1ST CHOICE; Start 02/12 at 10:00 Ondansetron HCl (Zofran) 4 mg PRN Q6HRS PRN IV NAUSEA/VOMITING; Start at 10:00; Stop 02/12/17 at 18:00; Status DC Fentanyl Citrate (Fentanyl 2ml Vial) 25 mcg PRN Q5MIN PRN IV MILD PAIN; Start 02/12/17 at 10:00; Stop 02/12/17 at 18:00; Status DC Fentanyl Citrate (Fentanyl 2ml Vial) 50 mcg PRN Q5MIN PRN IV MODERATE PAIN Last administered on 02/12/17 10:42; Start 02/12/17 at 10:00; Stop 02/12/17 at 18:00; Status DC Morphine Sulfate 1 mg PRN Q10MIN PRN IV SEVERE PAIN; Start 02/12/17 at 10:00; Stop 02/12/17 at 18:00; Status DC Ringer's Solution 1,000 ml @ 30 mls/hr Q24H IV ; Start 02/12/17 at 10:00; Stop 02/12/17 at 21:59; Status DC Lidocaine HCl (Xylocaine-Mpf 1% Vial) 2 ml 1X PRN PRN ID IV START; Start 02/12 at 10:00; Stop 02/12/17 at 18:00; Status DC Hydromorphone HCl (Dilaudid) 0.5 mg PRN Q10MIN PRN IV SEV PAIN, Second choice; Start 02/12/17 at 10:00; Stop 02/12/17 at 18:00; Status DC Prochlorperazine Edisylate (Compazine) 5 mg PACU PRN PRN IV NAUSEA, MRX1 Last administered on 02/12/17t 10:00; Start 02/12/17 at 10:00; Stop 02/12/17 at 18 :00; Status DC Potassium Chloride (Klor-Con) 40 meq 1X ONCE PO Last administered on t 10:30; Start 02/12/17 at 10:30; Stop 02/12/17 at 10:31; Status DC Albuterol Sulfate (Ventolin Neb Soln) 2.5 mg 1X STAT NEB ; Start 02/12/17 at 11:18; Stop 02/12/17 at 11:20; Status DC Calcium Carbonate/ Glycine (Tums) 500 mg PRN AFTMEALHC PRN PO INDIGESTION; Start 02/12/17 at 23:00 Pantoprazole Sodium (Protonix) 40 mg DAILYAC PO ; Start 02/13/17 at 12:00 Iohexol (Omnipaque 300 Mg/ml) 50 ml STK-MED ONCE .ROUTE ; Start 02/12/17 at 07: 19; Stop 02/13/17 at 12:14; Status DC Bupivacaine HCl/ Epinephrine Bitart (Sensorcain-Mpf Epi 0.5%-1:[id number]) 30 ml STK -MED ONCE .ROUTE ; Start 02/12/17 at 07:19; Stop 02/13/17 at 12:15; Status DC Cellulose 1 each STK-MED ONCE .ROUTE ; Start 02/12/17 at 07:19; Stop 02/13/17 at 12:15; Status DC Propofol 20 ml @ As Directed STK-MED ONCE IV ; Start 02/12/17 at 07:25; Stop 02/13/17 at 12:15; Status DC Rocuronium [place] (Zemuron) 50 mg STK-MED ONCE .ROUTE ; Start 02/12/17 at 07: 25; Stop 02/13/17 at 12:15; Status DC Lidocaine HCl (Lidocaine Pf 2% Vial) 5 ml STK-MED ONCE .ROUTE ; Start 02/12/17 at 07:26; Stop 02/13/17 at 12:15; Status DC Fentanyl Citrate (Fentanyl 2ml Vial) 100 mcg STK-MED ONCE .ROUTE ; Start at 07:26; Stop 02/13/17 at 12:15; Status DC Ondansetron HCl (Zofran) 4 mg STK-MED ONCE .ROUTE ; Start 02/12/17 at 08:31; Stop 02/13/17 at 12:20; Status DC Dexamethasone Sodium Phosphate (Decadron) 20 mg STK-MED ONCE .ROUTE ; Start at 08:31; Stop 02/13/17 at 12:20; Status DC Neostigmine Methylsulfate (Bloxiverz) 10 mg STK-MED ONCE .ROUTE ; Start at 08:36; Stop 02/13/17 at 12:20; Status DC Glycopyrrolate (Robinul) 1 mg STK-MED ONCE .ROUTE ; Start 02/12/17 at 08:36; Stop 02/13/17 at 12:20; Status DC Phenylephrine HCl 1 mg STK-MED ONCE IV ; Start 02/12/17 at 08:39; Stop at 12:20; Status DC Prochlorperazine Edisylate (Compazine) 10 mg STK-MED ONCE .ROUTE ; Start at 10:00; Stop 02/13/17 at 12:21; Status DC Active Scripts Active Tylenol (Acetaminophen) 325 Mg Tablet 650 Mg PO PRN Q6HRS PRN Eliquis (Apixaban) 5 Mg Tablet 5 Mg PO BID Reported Metoprolol Tartrate 25 Mg Tablet Prilosec (Omeprazole) 40 Mg Capsule. 1 Cap PO DAILY Vitals/I & O Vital Sign - Last 24 Hours 02/12/17 02/12/17 02/12/17 02/12/17 12:30 12:52 13:00 14:30 Temp 98.2 98.2 Pulse 92 76 76 Resp 18 18 18 B/P (MAP) 105/38 (60) 106/36 (59) 101/31 (54) Pulse Ox 92 94 91 O2 Delivery Nasal Cannula Nasal Cannula Nasal Cannula Nasal Cannula O2 Flow Rate 4.0 4.0 4.0 4.0 02/12/17 02/12/17 02/12/17 02/12/17 15:30 15:46 15:49 18:02 Temp 97.9 97.9 Pulse 73 Resp 18 B/P (MAP) 108/36 (60) Pulse Ox 91 O2 Delivery Nasal Cannula Nasal Cannula Nasal Cannula O2 Flow Rate 4.0 4.0 4.0 02/12/17 02/12/17 02/12/17 02/12/17 19:00 20:08 21:08 23:00 Temp 97.9 98.2 97.9 98.2 Pulse 81 78 Resp 18 16 18 B/P (MAP) 102/49 (66) 111/58 (75) Pulse Ox 92 91 91 94 O2 Delivery Nasal Cannula Nasal Cannula O2 Flow Rate 3.0 3.0 02/13/17 02/13/17 02/13/17 02/13/17 03:00 06:37 07:00 07:37 Temp 97.5 97.7 97.5 97.7 Pulse 75 72 Resp 18 16 18 16 B/P (MAP) 109/60 (76) 127/71 (89) Pulse Ox 92 94 O2 Delivery Nasal Cannula Nasal Cannula Nasal Cannula Nasal Cannula O2 Flow Rate 3.0 2.0 3.0 3.0 02/13/17 02/13/17 02/13/17 10:01 10:15 11:40 Temp 97.7 97.7 Pulse 72 79 Resp 18 B/P (MAP) 127/71 120/70 (87) Pulse Ox 94 O2 Delivery Nasal Cannula Nasal Cannula O2 Flow Rate 3.0 3.0 Intake and Output 02/12/17 02/12/17 02/13/17 15:00 23:00 07:00 Intake Total 975 ml 1020 ml 1020 ml Output Total 145 ml 35 ml Balance 830 ml 985 ml 1020 ml CURT WREN III DO Feb 13, 2017 12:35
[2017-02-13] MEDS: PANTOPRAZOLE 40 MG TABLET.DR. PO SCH (12:36)
--- NOTE | 2017-02-13 13:49 | PDOC ---
Infectious Disease Note Subjective Subjective s/p lap chol on 02/12 No fever last 24 hours Pain controlled ambulating without difficulty ROS ROS no n/v/d abdo pain improving Vital Sign Vital Signs Vital Signs Date Time Temp Pulse Resp B/P (MAP) Pulse Ox O2 Delivery O2 Flow Rate FiO2 02/13/17 11:40 97.7 79 18 120/70 (87) 94 Nasal Cannula 3.0 97.7 Physical Exam PHYSICAL EXAM GENERAL: axox3 pt in nad HEENT: OC pink, dry anicteric NECK: Supple. LUNGS: Clear. HEART: Normal S1, S2, irregular. PPM ABDOMEN: Obese, BS active, soft right-sided drain intact EXTREMITIES: No gross edema or cyanosis. SKIN: Without rash. NEUROLOGIC: Responds appropriately Labs Lab Laboratory Tests Test 02/13/17 04:30 White Blood Count 12.9 x10^3/uL (4.0-11.0) Red Blood Count 3.27 x10^6/uL (3.50-5.40) Hemoglobin 10.5 g/dL (12.0-15.5) Hematocrit 31.7 % (36.0-47.0) Mean Corpuscular Volume 97 fL (79-100) Mean Corpuscular Hemoglobin 32 pg (25-35) Mean Corpuscular Hemoglobin Concent 33 g/dL (31-37) Red Cell Distribution Width 13.4 % (11.5-14.5) Platelet Count 248 x10^3/uL (140-400) Neutrophils (%) (Auto) 88 % (31-73) Lymphocytes (%) (Auto) 5 % (24-48) Monocytes (%) (Auto) 6 % (0-9) Eosinophils (%) (Auto) 2 % (0-3) Basophils (%) (Auto) 0 % (0-3) Neutrophils # (Auto) 11.3 x10^3uL (1.8-7.7) Lymphocytes # (Auto) 0.6 x10^3/uL (1.0-4.8) Monocytes # (Auto) 0.7 x10^3/uL (0.0-1.1) Eosinophils # (Auto) 0.2 x10^3/uL (0.0-0.7) Basophils # (Auto) 0.0 x10^3/uL (0.0-0.2) Segmented Neutrophils % 82 % (35-66) Lymphocytes % 8 % (24-48) Monocytes % 9 % (0-10) Eosinophils % 1 % (0-5) Platelet Estimate Adequate (ADEQUATE) Sodium Level 136 mmol/L (136-145) Potassium Level 3.6 mmol/L (3.5-5.1) Chloride Level 103 mmol/L (98-107) Carbon Dioxide Level 23 mmol/L (21-32) Anion Gap 10 (6-14) Blood Urea Nitrogen 11 mg/dL (7-20) Creatinine 0.6 mg/dL (0.6-1.0) Estimated GFR (Cockcroft-Gault) 94.3 Glucose Level 167 mg/dL (70-99) Calcium Level 8.0 mg/dL (8.5-10.1) Micro bc ngtd uc ngtd Objective Assessment Acute cholecystitis, s/p lap russell 02/12/2017 Leukocytosis Fever A-fib on Eliquis GERD pyuria , urine c/s ngtd Plan Plan of Care continue empiric Zosyn f/u am labs and cultures Supportive care . GWEN PAUL MD Feb 13, 2017 13:49
[2017-02-13 15:00] VITALS: BP 128/70
[2017-02-13] MEDS: APIXABAN 5 MG TABLET. PO SCH ×2 (15:56→22:29)
[2017-02-13 19:05] VITALS: BP 135/59
[2017-02-13 23:00] VITALS: BP 124/75
[2017-02-14 03:00] VITALS: BP 119/62
[2017-02-14 04:50] LABS: BASO % 0 % (0-3); EOS % 2 % (0-3); HEMOGLOBIN 10.4 g/dL (12.0-15.5); LYMPH # 1.3 x10^3/uL (1.0-4.8); LYMPH % 15 % (24-48); MEAN CORPUSCULAR HEMOGLOBIN 32 pg (25-35); MEAN CORPUSCULAR HGB CONC 34 g/dL (31-37); MEAN CORPUSCULAR VOLUME 94 fL (79-100); MONO % 10 % (0-9); NEUT % 72 % (31-73); PLATELET COUNT 296 x10^3/uL (140-400); RED BLOOD COUNT 3.31 x10^6/uL (3.50-5.40); RED CELL DISTRIBUTION WIDTH 13.2 % (11.5-14.5); WHITE BLOOD COUNT 8.6 x10^3/uL (4.0-11.0)
[2017-02-14 05:05] LABS: CALCIUM 8.3 mg/dL (8.5-10.1); CREATININE 0.9 mg/dL (0.6-1.0); GFR 59.1
[2017-02-14 05:10] LABS: POTASSIUM 2.8 mmol/L (3.5-5.1)
[2017-02-14] MEDS: PIPERACILLIN/TAZO IV Push 2.25 GM VIAL. IVP SCH (05:44)
[2017-02-14] MEDS ORDERED: POTASSIUM CHLORIDE 20 MEQ TABLET.ER. PO ONE ×2 (06:00→12:00)
[2017-02-14 07:00] VITALS: BP 132/74
[2017-02-14] MEDS: PANTOPRAZOLE 40 MG TABLET.DR. PO SCH (07:52)
[2017-02-14] MEDS: LACTOBACILLUS RHAMNOSUS GG 1 CAPSULE. PO SCH (07:52)
[2017-02-14] MEDS: APIXABAN 5 MG TABLET. PO SCH (07:53)
[2017-02-14] MEDS: DOCUSATE SODIUM 100 MG CAPSULE. PO SCH (07:53)
[2017-02-14] MEDS: METOPROLOL TART IMMED RELEASE 25 MG TABLET. PO SCH (08:03)
[2017-02-14] MEDS ORDERED: BISACODYL 5 MG TABLET.DR. PO PRN (09:30)
--- NOTE | 2017-02-14 10:02 | PDOC ---
Subjective: Subjective: A little RUQ discomfort. Tolerating PO. No stools yet, says going home today and feels getting back to her normal routine will help. Objective: Objective: Drain out. Vital Signs: Vital Signs Date Time Temp Pulse Resp B/P (MAP) Pulse Ox O2 Delivery O2 Flow Rate FiO2 02/14/17 08:03 86 132/74 02/14/17 07:00 98.7 18 96 Nasal Cannula 2.0 98.7 Labs: Laboratory Tests Test 02/14/17 04:10 02/14/17 04:20 White Blood Count 8.6 x10^3/uL Red Blood Count 3.31 x10^6/uL Hemoglobin 10.4 g/dL Hematocrit 31.0 % Mean Corpuscular Volume 94 fL Mean Corpuscular Hemoglobin 32 pg Mean Corpuscular Hemoglobin Concent 34 g/dL Red Cell Distribution Width 13.2 % Platelet Count 296 x10^3/uL Neutrophils (%) (Auto) 72 % Lymphocytes (%) (Auto) 15 % Monocytes (%) (Auto) 10 % Eosinophils (%) (Auto) 2 % Basophils (%) (Auto) 0 % Neutrophils # (Auto) 6.2 x10^3uL Lymphocytes # (Auto) 1.3 x10^3/uL Monocytes # (Auto) 0.9 x10^3/uL Eosinophils # (Auto) 0.2 x10^3/uL Basophils # (Auto) 0.0 x10^3/uL Sodium Level 143 mmol/L Potassium Level 2.8 mmol/L Chloride Level 107 mmol/L Carbon Dioxide Level 31 mmol/L Anion Gap 5 Blood Urea Nitrogen 15 mg/dL Creatinine 0.9 mg/dL Estimated GFR (Cockcroft-Gault) 59.1 Glucose Level 101 mg/dL Calcium Level 8.3 mg/dL PE: GEN: NAD, up to chair LUNGS: clear HEART: RR ABD: RUQ tenderness/incisional NEURO/PSYCH: A & O 3 A/P: S/p cholecystectomy GERD -on PPI Hypokalemia -per primary A Fib -on Eliquis Anemia -stable (since 2014) Leukocytosis - resolved -atbx per ID -- DC per primary/surgery. Added Miralax if desired. TORI FRAUSTO Feb 14, 2017 10:02
[2017-02-14 11:55] VITALS: BP 113/59
--- NOTE | 2017-02-14 11:59 | PDOC ---
Infectious Disease Note Subjective Subjective s/p lap chol on 02/12 no f/c/n/v/d/abdo pain/sob/cough Pain controlled ambulating without difficulty ROS ROS neg extensive Vital Sign Vital Signs Vital Signs Date Time Temp Pulse Resp B/P (MAP) Pulse Ox O2 Delivery O2 Flow Rate FiO2 02/14/17 11:55 98.5 73 18 113/59 (77) 97 Nasal Cannula 2.0 98.5 Physical Exam PHYSICAL EXAM GENERAL: NAD, Alert HEENT: PERRL, OC/OP NECK: Supple, no JVD, no LN LUNGS: Clear HEART: S1S2, no gallop, no murmur ABD: Soft, NT, no organomegaly, no rebound incision site dry dressing EXT: No edema, no cyanosis VOLLEYBALL COACH: Alert, oriented x 3, no focal neurologic deficit SKIN: No rash IV: ok Labs Lab Laboratory Tests Test 02/14/17 04:10 02/14/17 04:20 White Blood Count 8.6 x10^3/uL (4.0-11.0) Red Blood Count 3.31 x10^6/uL (3.50-5.40) Hemoglobin 10.4 g/dL (12.0-15.5) Hematocrit 31.0 % (36.0-47.0) Mean Corpuscular Volume 94 fL (79-100) Mean Corpuscular Hemoglobin 32 pg (25-35) Mean Corpuscular Hemoglobin Concent 34 g/dL (31-37) Red Cell Distribution Width 13.2 % (11.5-14.5) Platelet Count 296 x10^3/uL (140-400) Neutrophils (%) (Auto) 72 % (31-73) Lymphocytes (%) (Auto) 15 % (24-48) Monocytes (%) (Auto) 10 % (0-9) Eosinophils (%) (Auto) 2 % (0-3) Basophils (%) (Auto) 0 % (0-3) Neutrophils # (Auto) 6.2 x10^3uL (1.8-7.7) Lymphocytes # (Auto) 1.3 x10^3/uL (1.0-4.8) Monocytes # (Auto) 0.9 x10^3/uL (0.0-1.1) Eosinophils # (Auto) 0.2 x10^3/uL (0.0-0.7) Basophils # (Auto) 0.0 x10^3/uL (0.0-0.2) Sodium Level 143 mmol/L (136-145) Potassium Level 2.8 mmol/L (3.5-5.1) Chloride Level 107 mmol/L (98-107) Carbon Dioxide Level 31 mmol/L (21-32) Anion Gap 5 (6-14) Blood Urea Nitrogen 15 mg/dL (7-20) Creatinine 0.9 mg/dL (0.6-1.0) Estimated GFR (Cockcroft-Gault) 59.1 Glucose Level 101 mg/dL (70-99) Calcium Level 8.3 mg/dL (8.5-10.1) Micro bc ngtd uc ngtd Objective Assessment Acute cholecystitis, s/p lap russell 02/12/2017 Leukocytosis Fever A-fib on Eliquis GERD pyuria , urine c/s ngtd Plan Plan of Care DC zosyn augmentin for 7 days ok to dc home from infectious disease standpoint f/u surgery and pcp as outpt . GWEN PAUL MD Feb 14, 2017 11:59
[2017-02-14] MEDS ORDERED: POLYETHYLENE GLYCOL 3350 17 GM PACKET. PO SCH (12:00)
--- NOTE | 2017-02-14 12:53 | PDOC ---
MANE YEBOAH [employer] HEL[employer] 02/14/17 1253: SURGICAL PROGRESS NOTE Subjective tolerating diet pain managed ambulating Vital Signs Vital Signs Date Time Temp Pulse Resp B/P (MAP) Pulse Ox O2 Delivery O2 Flow Rate FiO2 02/14/17 11:55 98.5 73 18 113/59 (77) 97 Nasal Cannula 2.0 98.5 I&O Intake and Output 02/14/17 07:00 Output Total 200 ml Balance -200 ml Output Urine Total 200 ml # Voids 4 General: Alert, Oriented X3, Cooperative, No acute distress Abdomen: Soft, Other (ND, lap sites c/d/i, no erythema) Labs Laboratory Tests Test 02/13/17 04:30 02/14/17 04:10 02/14/17 04:20 White Blood Count 12.9 x10^3/uL (4.0-11.0) 8.6 x10^3/uL (4.0-11.0) Red Blood Count 3.27 x10^6/uL (3.50-5.40) 3.31 x10^6/uL (3.50-5.40) Hemoglobin 10.5 g/dL (12.0-15.5) 10.4 g/dL (12.0-15.5) Hematocrit 31.7 % (36.0-47.0) 31.0 % (36.0-47.0) Mean Corpuscular Volume 97 fL (79-100) 94 fL (79-100) Mean Corpuscular Hemoglobin 32 pg (25-35) 32 pg (25-35) Mean Corpuscular Hemoglobin Concent 33 g/dL (31-37) 34 g/dL (31-37) Red Cell Distribution Width 13.4 % (11.5-14.5) 13.2 % (11.5-14.5) Platelet Count 248 x10^3/uL (140-400) 296 x10^3/uL (140-400) Neutrophils (%) (Auto) 88 % (31-73) 72 % (31-73) Lymphocytes (%) (Auto) 5 % (24-48) 15 % (24-48) Monocytes (%) (Auto) 6 % (0-9) 10 % (0-9) Eosinophils (%) (Auto) 2 % (0-3) 2 % (0-3) Basophils (%) (Auto) 0 % (0-3) 0 % (0-3) Neutrophils # (Auto) 11.3 x10^3uL (1.8-7.7) 6.2 x10^3uL (1.8-7.7) Lymphocytes # (Auto) 0.6 x10^3/uL (1.0-4.8) 1.3 x10^3/uL (1.0-4.8) Monocytes # (Auto) 0.7 x10^3/uL (0.0-1.1) 0.9 x10^3/uL (0.0-1.1) Eosinophils # (Auto) 0.2 x10^3/uL (0.0-0.7) 0.2 x10^3/uL (0.0-0.7) Basophils # (Auto) 0.0 x10^3/uL (0.0-0.2) 0.0 x10^3/uL (0.0-0.2) Segmented Neutrophils % 82 % (35-66) Lymphocytes % 8 % (24-48) Monocytes % 9 % (0-10) Eosinophils % 1 % (0-5) Platelet Estimate Adequate (ADEQUATE) Sodium Level 136 mmol/L (136-145) 143 mmol/L (136-145) Potassium Level 3.6 mmol/L (3.5-5.1) 2.8 mmol/L (3.5-5.1) Chloride Level 103 mmol/L (98-107) 107 mmol/L (98-107) Carbon Dioxide Level 23 mmol/L (21-32) 31 mmol/L (21-32) Anion Gap 10 (6-14) 5 (6-14) Blood Urea Nitrogen 11 mg/dL (7-20) 15 mg/dL (7-20) Creatinine 0.6 mg/dL (0.6-1.0) 0.9 mg/dL (0.6-1.0) Estimated GFR (Cockcroft-Gault) 94.3 59.1 Glucose Level 167 mg/dL (70-99) 101 mg/dL (70-99) Calcium Level 8.0 mg/dL (8.5-10.1) 8.3 mg/dL (8.5-10.1) Laboratory Tests Test 11/28/17 04:10 02/14/17 04:20 White Blood Count 8.6 x10^3/uL (4.0-11.0) Red Blood Count 3.31 x10^6/uL (3.50-5.40) Hemoglobin 10.4 g/dL (12.0-15.5) Hematocrit 31.0 % (36.0-47.0) Mean Corpuscular Volume 94 fL (79-100) Mean Corpuscular Hemoglobin 32 pg (25-35) Mean Corpuscular Hemoglobin Concent 34 g/dL (31-37) Red Cell Distribution Width 13.2 % (11.5-14.5) Platelet Count 296 x10^3/uL (140-400) Neutrophils (%) (Auto) 72 % (31-73) Lymphocytes (%) (Auto) 15 % (24-48) Monocytes (%) (Auto) 10 % (0-9) Eosinophils (%) (Auto) 2 % (0-3) Basophils (%) (Auto) 0 % (0-3) Neutrophils # (Auto) 6.2 x10^3uL (1.8-7.7) Lymphocytes # (Auto) 1.3 x10^3/uL (1.0-4.8) Monocytes # (Auto) 0.9 x10^3/uL (0.0-1.1) Eosinophils # (Auto) 0.2 x10^3/uL (0.0-0.7) Basophils # (Auto) 0.0 x10^3/uL (0.0-0.2) Sodium Level 143 mmol/L (136-145) Potassium Level 2.8 mmol/L (3.5-5.1) Chloride Level 107 mmol/L (98-107) Carbon Dioxide Level 31 mmol/L (21-32) Anion Gap 5 (6-14) Blood Urea Nitrogen 15 mg/dL (7-20) Creatinine 0.9 mg/dL (0.6-1.0) Estimated GFR (Cockcroft-Gault) 59.1 Glucose Level 101 mg/dL (70-99) Calcium Level 8.3 mg/dL (8.5-10.1) Problem List Problems Medical Problems: (1) Abdominal pain Status: Acute (2) Acute cholecystitis due to biliary calculus Status: Acute (3) Current use of anticoagulant therapy Status: Acute (4) Nausea & vomiting Status: Acute Assessment/Plan s/p lap russell ok to dc home FU 1 week Problems: WILVER GREGORIO MD 02/14/17 1502: SURGICAL PROGRESS NOTE Assessment/Plan pt seen agree with plan Problems: MANE YEBOAH APRN Feb 14, 2017 12:53 WILVER GREGORIO MD Feb 14, 2017 15:02
[2017-02-14] MEDS ORDERED: AMOXICILLIN/K CLAV 875/125MG TABLET. PO SCH (13:00)
[2017-02-14] MEDS ORDERED: AMOX1TAB58 PO (13:29)
--- NOTE | 2017-02-14 13:31 | PDOC3 ---
Discharge Summary Visit Information Date of Admission: Feb 10, 2017 Date of Discharge: Feb 14, 2017 Admitting Diagnosis Comment: Acute Cholecystitis Abd Pain Final Diagnosis Problems Medical Problems: (1) Abdominal pain Status: Acute (2) Acute cholecystitis due to biliary calculus Status: Acute (3) Current use of anticoagulant therapy Status: Acute (4) Nausea & vomiting Status: Acute Brief Hospital Course Allergies Allergies Coded Allergies Type Severity Reaction Last Updated Verified Sulfa (Sulfonamide Antibiotics) Allergy Intermediate 09/26/14 No Vital Signs Vital Signs Date Time Temp Pulse Resp B/P (MAP) Pulse Ox O2 Delivery O2 Flow Rate FiO2 02/14/17 11:55 98.5 73 18 113/59 (77) 97 Nasal Cannula 2.0 98.5 Lab Results Laboratory Tests Test 02/13/17 04:30 02/14/17 04:10 02/14/17 04:20 White Blood Count 12.9 x10^3/uL (4.0-11.0) 8.6 x10^3/uL (4.0-11.0) Red Blood Count 3.27 x10^6/uL (3.50-5.40) 3.31 x10^6/uL (3.50-5.40) Hemoglobin 10.5 g/dL (12.0-15.5) 10.4 g/dL (12.0-15.5) Hematocrit 31.7 % (36.0-47.0) 31.0 % (36.0-47.0) Mean Corpuscular Volume 97 fL (79-100) 94 fL (79-100) Mean Corpuscular Hemoglobin 32 pg (25-35) 32 pg (25-35) Mean Corpuscular Hemoglobin Concent 33 g/dL (31-37) 34 g/dL (31-37) Red Cell Distribution Width 13.4 % (11.5-14.5) 13.2 % (11.5-14.5) Platelet Count 248 x10^3/uL (140-400) 296 x10^3/uL (140-400) Neutrophils (%) (Auto) 88 % (31-73) 72 % (31-73) Lymphocytes (%) (Auto) 5 % (24-48) 15 % (24-48) Monocytes (%) (Auto) 6 % (0-9) 10 % (0-9) Eosinophils (%) (Auto) 2 % (0-3) 2 % (0-3) Basophils (%) (Auto) 0 % (0-3) 0 % (0-3) Neutrophils # (Auto) 11.3 x10^3uL (1.8-7.7) 6.2 x10^3uL (1.8-7.7) Lymphocytes # (Auto) 0.6 x10^3/uL (1.0-4.8) 1.3 x10^3/uL (1.0-4.8) Monocytes # (Auto) 0.7 x10^3/uL (0.0-1.1) 0.9 x10^3/uL (0.0-1.1) Eosinophils # (Auto) 0.2 x10^3/uL (0.0-0.7) 0.2 x10^3/uL (0.0-0.7) Basophils # (Auto) 0.0 x10^3/uL (0.0-0.2) 0.0 x10^3/uL (0.0-0.2) Segmented Neutrophils % 82 % (35-66) Lymphocytes % 8 % (24-48) Monocytes % 9 % (0-10) Eosinophils % 1 % (0-5) Platelet Estimate Adequate (ADEQUATE) Sodium Level 136 mmol/L (136-145) 143 mmol/L (136-145) Potassium Level 3.6 mmol/L (3.5-5.1) 2.8 mmol/L (3.5-5.1) Chloride Level 103 mmol/L (98-107) 107 mmol/L (98-107) Carbon Dioxide Level 23 mmol/L (21-32) 31 mmol/L (21-32) Anion Gap 10 (6-14) 5 (6-14) Blood Urea Nitrogen 11 mg/dL (7-20) 15 mg/dL (7-20) Creatinine 0.6 mg/dL (0.6-1.0) 0.9 mg/dL (0.6-1.0) Estimated GFR (Cockcroft-Gault) 94.3 59.1 Glucose Level 167 mg/dL (70-99) 101 mg/dL (70-99) Calcium Level 8.0 mg/dL (8.5-10.1) 8.3 mg/dL (8.5-10.1) Laboratory Tests Test 02/14/17 04:10 02/14/17 04:20 White Blood Count 8.6 x10^3/uL (4.0-11.0) Red Blood Count 3.31 x10^6/uL (3.50-5.40) Hemoglobin 10.4 g/dL (12.0-15.5) Hematocrit 31.0 % (36.0-47.0) Mean Corpuscular Volume 94 fL (79-100) Mean Corpuscular Hemoglobin 32 pg (25-35) Mean Corpuscular Hemoglobin Concent 34 g/dL (31-37) Red Cell Distribution Width 13.2 % (11.5-14.5) Platelet Count 296 x10^3/uL (140-400) Neutrophils (%) (Auto) 72 % (31-73) Lymphocytes (%) (Auto) 15 % (24-48) Monocytes (%) (Auto) 10 % (0-9) Eosinophils (%) (Auto) 2 % (0-3) Basophils (%) (Auto) 0 % (0-3) Neutrophils # (Auto) 6.2 x10^3uL (1.8-7.7) Lymphocytes # (Auto) 1.3 x10^3/uL (1.0-4.8) Monocytes # (Auto) 0.9 x10^3/uL (0.0-1.1) Eosinophils # (Auto) 0.2 x10^3/uL (0.0-0.7) Basophils # (Auto) 0.0 x10^3/uL (0.0-0.2) Sodium Level 143 mmol/L (136-145) Potassium Level 2.8 mmol/L (3.5-5.1) Chloride Level 107 mmol/L (98-107) Carbon Dioxide Level 31 mmol/L (21-32) Anion Gap 5 (6-14) Blood Urea Nitrogen 15 mg/dL (7-20) Creatinine 0.9 mg/dL (0.6-1.0) Estimated GFR (Cockcroft-Gault) 59.1 Glucose Level 101 mg/dL (70-99) Calcium Level 8.3 mg/dL (8.5-10.1) Brief Hospital Course Ms. Olguin is a 86 old female amditted for abd pain found to have acute cholecystitis, underwent lap russell, need augmentin and percocet for home , Seen and examined CLeared form GS ff up 1 week gs AUgmentin sent to her pharmacy Discharge Information Condition at Discharge: Improved, Stable Disposition/Orders: D/C to Home Scheduled Apixaban (Eliquis), 5 MG PO BID Omeprazole (Prilosec), 1 CAP PO DAILY, (Reported) Scheduled PRN Acetaminophen (Tylenol), 650 MG PO PRN Q6HRS PRN for PAIN / TEMP Miscellaneous Medications Metoprolol Tartrate (Metoprolol Tartrate), (Reported) Discontinued Medications Furosemide (Lasix), 1 TAB PO DAILY, (Reported) JUAN ANTONIO QUINTEROS MD Feb 14, 2017 13:31
--- NOTE | 2017-02-14 13:52 | PATHOLOGY ---
PATHOLOGY REPORT * * * * * * * * FINAL DIAGNOSIS: Gallbladder, laparoscopic cholecystectomy: - Cholelithiasis. - Acute necrotizing cholecystitis. (JPM:ruth ann; 02/14/2017) COMMENT: There is no evidence of malignancy. REPORT ELECTRONICALLY SIGNED BY: Stephen Tolliver M.D. DATE/TIME: 02/14/2017 13:51 * * * * * * * * GROSS PATHOLOGY: Received in formalin labeled "Nancy Griffith gallbladder," is a 10.9 x 4.9 x 2.8 cm, previously opened gallbladder with dark amador, wrinkled serosal surfaces. Opening the gallbladder reveals light green, grainy mucosa and an average wall thickness of 0.2 cm. Calculi are present, measuring 0.6-0.8 cm in maximum dimension, possessing a bright yellow and granular appearance, and feeling friable to the touch. No masses are noted grossly. [employer] sections from the body and fundus are submitted along with the proximal margin in cassette A1. (TSD; 02/13/2017) INITIAL CPT CODE(S): A; 51156 Professional services performed [place] [address] Technical services performed by [facility] at [address] [place] [address] [address], [place] [address]. SPECIMEN(S) RECEIVED: A.Gallbladder CLINICAL HISTORY: Acute russell PATIENT: NANCY GRIFFITH /AGE: 6 1930 (Age: 86) PATIENT #: [id number] ALT CASE #: SPECIMEN COLLECTION DATE: 02/12/2017 SPECIMEN RECEIVED DATE: 02/13/2017 [facility] - [address] [place] [address] - PHONE: [phone] * * * END OF REPORT * * *
== END 2017-02-14 15:15 | disposition home or self-care (01) | DRG 853 ==
LOC: ER 23:57 → 4 NORTH 02-10 02:40
PROVIDERS: ADMIT Internal Medicine; ATTEND Internal Medicine
PROC: BF121ZZ Fluoroscopy of Gallbladder using Low Osmolar Contrast (ICD-10-PCS; 2017-02-12)
PROC: 0FT44ZZ Resection of Gallbladder, Percutaneous Endoscopic Approach (ICD-10-PCS; principal; 2017-02-12 08:00)
DX: A41.9 Sepsis, unspecified organism (principal); J96.20 Acute and chronic respiratory failure, unspecified whether with hypoxia or hypercapnia; K80.00 Calculus of gallbladder with acute cholecystitis without obstruction; J98.11 Atelectasis; I48.0 Paroxysmal atrial fibrillation; I49.5 Sick sinus syndrome; D64.9 Anemia, unspecified; E87.6 Hypokalemia; F41.9 Anxiety disorder, unspecified; H35.30 Unspecified macular degeneration; I10 Essential (primary) hypertension; E66.9 Obesity, unspecified; K21.9 Gastro-esophageal reflux disease without esophagitis; K44.9 Diaphragmatic hernia without obstruction or gangrene; Z79.01 Long term (current) use of anticoagulants; Z82.49 Family history of ischemic heart disease and other diseases of the circulatory system; Z95.0 Presence of cardiac pacemaker; Z68.33 Body mass index [BMI] 33.0-33.9, adult; Z88.2 Allergy status to sulfonamides
CPT/HCPCS: 36415; 71010; 74177; 74300; 80048; 80053; 81001; 82553; 83605; 83690; 84484; 85007; 85025; 85610; 85730; 87040; 87071; 87075; 87086; 87205; 88304; 93005; 94640; 96361; 96374; J0780; J1100; J1170; J2370; J2405; J2543; J2704; J2710; J3010; J3490; J7030; Q9967; S0028; 99291-25; J2001